=== PATIENT | female | born 1975 | race Caucasian/White ===

== ENCOUNTER 2018-10-30 01:56 | Inpatient (IN) | payer BC, SELFPAY ==
[2018-10-30] MEDS ORDERED: Naloxone HCl 0.4 mg/ml Vial ONE (02:06)
[2018-10-30] MEDS ORDERED: Rocuronium Bromide 10 MG/ML (10ML VIAL) ONE (02:16)
[2018-10-30] MEDS ORDERED: fentaNYL Citrate/PF 2,000 MCG in Sodium Chloride 0.9% 60 ML IV SCH ×2 (02:28→07:05)
[2018-10-30 02:38] LABS: #Eosinphils 0.1 thou/uL (0.0-0.7); #Lymphocytes 2.1 thou/uL (1.20-3.40); #Monocytes 0.4 thou/uL (0.11-0.59); #Neutrophils 3.6 thou/uL (1.40-6.50); %Basophils 0.6 % (0.0-1.0); %Eosinophils 1.5 % (0.0-10.0); %Lymphocytes 33.4 % (21.0-51.0); %Monocytes 5.8 % (0.0-10.0); %Neutrophils 58.8 % (42.0-75.0); Hemoglobin 13.1 g/dL (12.0-16.0); Mean Corpuscular HGB CONC 33.6 g/dL (32.0-36.0); Mean Corpuscular Hemoglobin 27.5 pg (27.0-31.0); Mean Corpuscular Volume 81.8 fL (78.0-98.0); Mean Platelet Volume 8.8 fL (7.4-10.4); Platelet Count 227 thou/uL (130-400); RBC Distribution Width 13.1 % (11.5-14.5); Red Blood Cell (RBC) Count 4.78 mill/uL (4.20-5.40); White Blood Cell (WBC) Count 6.2 thou/uL (4.8-10.8)
[2018-10-30 02:58] LABS: ALT (SGPT) 14 U/L (8-55); AST (SGOT) 10 U/L (5-34); Alkaline Phosphatase 82 U/L (40-150); Anion Gap 19 mmol/L (10-20); BUN (Urea Nitrogen) 19 mg/dL (7.0-18.7); Bilirubin, Total 0.4 mg/dL (0.2-1.2); CK (CPK) 49 U/L (29-168); Calc. Creatinine Clearance 0 mL/min (70-130); Calcium 10.1 mg/dL (7.8-10.44); Carbon Dioxide 23 mmol/L (22-29); Chloride 95 mmol/L (98-107); Estimated GFR-MDRD 42; Globulin 3.4 g/dL (2.4-3.5); Potassium 4.1 mmol/L (3.5-5.1); Protein, Total 7.4 g/dL (6.0-8.3); Sodium 133 mmol/L (136-145)
[2018-10-30 03:01] LABS: Glucose 660 mg/dL (70-105)
[2018-10-30] MEDS ORDERED: Propofol 1,000 MG/100 ML VIAL IV ONE (03:05)
[2018-10-30 03:07] LABS: Actual Bicarbonate (HCO3a) 23.3 mEq/L (22-28); Analyzer IN Cardio ER; Base Excess (BEa) 0.5 mEq/L (-2.0 to +3.0); CO2 Tension 32.1 mmHg (35.0-45.0); Calcium, Ionized 1.19 mmol/L (1.12-1.30); Carboxyhemoglobin (COHb) 0.5 gm% (0.0-3.0); Hemoglobin (Hb) 13.3 g/dL (12.0-16.0); O2 Tension (PaO2) 133.8 mmHg (80.0-100.0); Potassium - ABG Lab 4.41 mmol/L (3.70-5.30); pH, Arterial 7.48 (7.35-7.45)
[2018-10-30 03:10] LABS: ALV-art Gradient 182.575 (0-20); Puncture Site RRA
[2018-10-30 03:21] LABS: Acetaminophen Less than 6.0 mcg/mL (10.0-30.0); Alcohol Less than 10 mg/dL (Less than 10); Salicylate Less than 8.0 mg/dL (15.0-30.0)
[2018-10-30] MEDS ORDERED: Insulin Regular 100 units/100 ml in NS IVPB SCH (03:30)
[2018-10-30 04:13] LABS: Amphetamine Not Detected (NotDetected); Barbiturates Screen Not Detected (NotDetected); Benzodiazepine Screen Not Detected (NotDetected); Bilirubin Negative (Negative); Blood, Urine Moderate (Negative); Clarity CLEAR (Clear); Cocaine Metabolite Screen Not Detected (NotDetected); Glucose, Urine (Dipstick) >=1000 mg/dL (Negative); Leukocyte Negative (Negative); Medtox Control Line Valid? VALID (VALID); Medtox Reader # READER 1; Methadone Not Detected (NotDetected); Methamphetamine Not Detected (NotDetected); Nitrite Negative (Negative); Opiate Screen Not Detected (NotDetected); Oxycodone Screen Not Detected (NotDetected); Phencyclidine (PCP) Not Detected (NotDetected); Protein, Urine (Dipstick) 100 mg/dL (Neg-Trace); Specific Gravity, Urine 1.029 (1.002-1.036); THC/Cannabinoid Screen Not Detected (NotDetected); Tricyclic Screen Not Detected (NotDetected); Urobilinogen 0.2 mg/dL (0.2-1.0)
[2018-10-30 04:15] LABS: Bacteria/HPF None Seen HPF (None Seen); Hyaline Casts/LPF 0-3 HYALINE CAST LPF (0-3 Hyaline); Squamous Epithelial 0-3 HPF (0-3); WBC/HPF 0-3 HPF (0-3)
--- NOTE | 2018-10-30 04:43 | PDOC.FPRHP ---
- History of Present Illness Chief Complaint: Seizing History of Present Illness: Ms Tucker is a 43yo female with pmh of Insulin dependent DM with noncompliance presents by EMS from home for concern of seizure and stroke. History provided by . Monday at 2200 pt began acting strangely and was combative. She then laid down to go to sleep. Upon waking at 2300 she was slurring her speech, and reported she couldn't feel her feet. was concerned for stroke so had her lift her arms in the air. He is unable to remember which arm but at that time she was only able to lift one arm. He carried her to bed and began researching stroke symptoms. During this time she "snapped out of it" and walked to the living room couch and started speaking normally. Around 2330- midnight she began full body shaking while they were watching tv. He lowered her to the floor. It last approx 5 min. Afterwards she was able to open her eye but not speak or move. She has no hx of seizures. He noticed her breathing was different and very heavy. EMS arrived at this time. Only medical conditions reported by are muscular dystrophy and insulin dependent type 2 diabetes. Also reports chemical imbalance in her brain. She has not taken insulin in over 4 years or seen a physician during this time. Pt was unable to protect her airway in the ED. She was intubated and sedated. ED Course: Fentanyl 50mg x2. Intubated using rocuronium 100mg, etomidate 30mg. Sedated with Fentanyl and propofol. 1L NS and insulin ggt. Right IJ line placed. 2 peripheral IVs. Peguero placed. - Allergies/Adverse Reactions Allergies Allergy/AdvReac Type Severity Reaction Status Date / Time aspirin Allergy Verified 10/30/18 06:11 Penicillins Allergy Verified 10/30/18 06:11 - Home Medications Medication Instructions Recorded Confirmed Type Ibuprofen [Advil] 400 mg PO Q6HR PRN 10/30/18 10/30/18 History - History PMHx: Insulin dependent DMII, muscular dystrophy per , "chemical imbalance in brain" PSHx: x2 FHx: Parents: DMII, substance abuse, [place] Social: Former tobacco user, smoked 15 yrs. denies alcohol or drug use. - Review of Systems ROS unobtainable: other (per ) Gastrointestinal: denies: nausea, vomiting Musculoskeletal: reports: arthritis/arthralgias Neurological: reports: numbness (foot), seizure, weakness Psychological: reports: other ("chemical imbalance in brain") - Vital signs BP: 182/113 HR: 86 RR: 14 Tmax: 97.8 Pox: 100% on Vent - Physical Exam -Constitutional: Intubated and sedated HEENT: conjunctiva clear, MMM, other (Pinpoint pupils. Intubated Right IJ in place. 2 peripheral IV's. Peguero in place) Neck: trachea midline, no LAD, no thyromegaly Heart: RRR, no murmurs/rubs/gallops Lungs: CTAB, no wheezing Abdomen: soft, bowel sounds present Musculoskeletal: normal structure Skin: no rash/lesions, good turgor FMR H&P: Results - Labs Result Diagrams: 10/30/18 02:27 10/30/18 10:53 Lab results: WBC 6.2 thou/uL (4.8-10.8) 10/30/18 02:27 Hgb 13.1 g/dL (12.0-16.0) 10/30/18 02:27 Hct 39.1 % (36.0-47.0) 10/30/18 02:27 MCV 81.8 fL (78.0-98.0) 10/30/18 02:27 Plt Count 227 thou/uL (130-400) 10/30/18 02:27 Neutrophils % 58.8 % (42.0-75.0) 10/30/18 02:27 ABG pH 7.48 (7.35-7.45) H 10/30/18 02:55 ABG pCO2 32.1 mmHg (35.0-45.0) L 10/30/18 02:55 ABG pO2 133.8 mmHg (80.0-100.0) H 10/30/18 02:55 Sodium 133 mmol/L (136-145) L 10/30/18 02:27 Potassium 4.1 mmol/L (3.5-5.1) 10/30/18 02:27 Chloride 95 mmol/L (98-107) L 10/30/18 02:27 Carbon Dioxide 23 mmol/L (22-29) 10/30/18 02:27 BUN 19 mg/dL (7.0-18.7) H 10/30/18 02:27 Creatinine 1.35 mg/dL (0.6-1.1) H 10/30/18 02:27 Glucose 660 mg/dL (70-105) H* 10/30/18 02:27 Lactic Acid 4.0 mmol/L (0.5-2.2) H 10/30/18 02:27 Calcium 10.1 mg/dL (7.8-10.44) 10/30/18 02:27 Total Bilirubin 0.4 mg/dL (0.2-1.2) 10/30/18 02:27 AST 10 U/L (5-34) 10/30/18 02:27 ALT 14 U/L (8-55) 10/30/18 02:27 Alkaline Phosphatase 82 U/L (40-150) 10/30/18 02:27 Creatine Kinase 49 U/L (29-168) 10/30/18 02:27 Serum Total Protein 7.4 g/dL (6.0-8.3) 10/30/18 02:27 Albumin 4.0 g/dL (3.5-5.0) 10/30/18 02:27 Urine Ketones Negative mg/dL (Negative) 10/30/18 03:30 Urine Blood Moderate (Negative) H 10/30/18 03:30 Urine Nitrite Negative (Negative) 10/30/18 03:30 Ur Leukocyte Esterase Negative (Negative) 10/30/18 03:30 Urine RBC 7-10 HPF (0-3) H 10/30/18 03:30 Urine WBC 0-3 HPF (0-3) 10/30/18 03:30 Ur Squamous Epith Cells 0-3 HPF (0-3) 10/30/18 03:30 Urine Bacteria None Seen HPF (None Seen) 10/30/18 03:30 - Radiology Interpretation CT scan - head Status: report reviewed by me Additional comment: Awaiting official read. No acute abnormalities. No evidence of bleed FMR H&P: A/P - Problem List (1) Seizure Current Visit: Yes Status: Acute Code(s): R56.9 - UNSPECIFIED CONVULSIONS (2) Insulin dependent diabetes mellitus Current Visit: Yes Status: Acute Code(s): E11.9 - TYPE 2 DIABETES MELLITUS WITHOUT COMPLICATIONS; Z79.4 - JAIL (CURRENT) USE OF INSULIN (3) Lactic acid increased Current Visit: Yes Status: Acute Code(s): E87.2 - ACIDOSIS (4) Hyperglycemia Current Visit: Yes Status: Acute Code(s): R73.9 - HYPERGLYCEMIA, UNSPECIFIED (5) OMKAR (acute kidney injury) Current Visit: Yes Status: Acute Code(s): N17.9 - ACUTE KIDNEY FAILURE, UNSPECIFIED - Plan Ms Tucker is a 43yo female with pmh of Insulin dependent DM with noncompliance presenting with signs concerning for CVA vs Seizure Pulm - Currently on vent. SIMV RR: 12, TV 450, PEEP: 5 FIO2: 50% - Sedated on Propofol and Fentanyl - ABG in ED 7.48/32.1/133.8 - Consult Pulm - Admit to ICU Neuro - Unknown etiology for presentation. CVA vs Seizure. No hx of seizures. Prolactin elevated, 117. UDS negative. Pt did not receive TPA - Lactic acid 4 - CT/CTA in ED, no bleed or acute findings, awaiting final read - Sedated on Propofol and Fentanyl - Ordered Echo & MRI - EEG ordered - Neurology consult placed Endo - Hx of IDDMII. Noncompliance - Blood glucose 660. Anion gap 15 - Continue Insulin drip started in ED - BMP q4hr. Follow DKA protocol GI - Begin artificial nutrition in AM - Protonix daily CV - Hypertensive. No hx of HTN - Allow for permissive HTN for 24hrs, ends 1999 on 10/30 ID - No leukocytosis or fever. UA no signs of infection - Not on antibiotics - Peguero cath in place - OMKAR vs CKD. Cr 1.35 Lines: Right IJ. 2 peripheral IVs. Peguero cath Code Status: FULL DVT ppx: SCDs PCP: None FMR H&P: Upper Level - Pertinent history 43 yo female here from home for concerns for stroke. provides history. Monday evening around 22:00, patient began acting funny facing the wall in bed , slurring speech. Not sure how long this lasted, but <30 minutes. She snapped out of it and got up to go to the bathroom. Around 23:30, patient was watching wrestling with when she began having full body shaking and nonresponsive. This lasted about 5 minutes. After that she had abnormal breathing where she was breathing through pursed lips. called EMS. Patient never fully regained consciousness. Patient was fighting her and speaking nonsensical. In the ER, patient was not protecting her airway and was aggressive towards staff, preventing care to be administered, so she was intubated. Pt has a history of IDDM, but has not taken any medications for the past 4 years because she has not had insurance. Degenerative muscle disease also reported by . - Pertinent findings 182/113 HR: 86 TEMP: 97.8 SAT: 100% on vent Rate: 12 FIO2: 50% PEEP: 5 GEN: GCS 3 NEURO: pupils fixed, sedated, no clonus of LE PULM: intubated, no decreased breath sounds CARD: RRR, no mgr Lactate: 4.[address] Ramirez note for complete plan - Plan Date/Time: 10/30/18 0442 I, Neel Landers DO, have evaluated this patient and agree with findings/plan as outlined by internal recruiter resident. Pertinent changes/additions are listed here. # acute respiratory distress 2/2 Seizure vs CVA -intubated currently as she is not protecting her airway -MRI head -CVA head/neck -ECHO -EEG -neuro consult #Insulin dependent diabetes mellitus -patient started on hyperglycemia protocol -insulin drip #elevated lactate #OMKAR vs CKD Addendum - Attending - Attending Attestation Date/Time: 10/30/18 2200 I personally evaluated the patient and discussed the management with Dr. Ramirez and team. I agree and repeated with the History, Examination, Assessment and Plan documented above with any addition or exceptions noted below. 45 minutes of critical care time.
[2018-10-30] MEDS ORDERED: Midazolam HCl 2 mg/2 ml Vial ONE (04:44)
--- NOTE | 2018-10-30 05:13 | PDOC.EVN ---
Event Note - Event Note Event Note: Seen in ED. Reviewed history and ED course. On my exam intubated, sedated, and not w/d to stimuli. Pupils pinpoint. RRR s M; CTAB s w/r/r; ETT/OG and RIJ in place. BS+ , NTTP, no palp organomegaly. No rash or contusion. No fracture or malalignment. CT and CXR relatively unremarkable on my read. RIJ CVC in RA. DDx includes seizure disorder, stroke, ingestion, mass, other. If stroke, outside of window and no large vessel. Propofol gtt for sedation; EEG; neuro consult in AM. Begin TF in AM. Monitor BP and would allow permissive hypertension. Lung protective ventilation. Begin insulin gtt for hyperglycemia without acidosis or significant gap. MRI brain when able. DVT ppx. GI ppx if unable to start feeds.
[2018-10-30] MEDS ORDERED: Sodium Chloride 0.9% 1,000 ML IV SCH (05:15)
[2018-10-30] MEDS ORDERED: Sodium Chloride 0.9% 1,000 ML IV PRN ×4 (06:53)
[2018-10-30] MEDS ORDERED: CCU Electrolyte Replacement 1 EACH IVPB ONE (06:53)
[2018-10-30] MEDS ORDERED: HUMULIN R 100 UNITS in Sodium Chloride 0.9% 100 ML IVPB SCH (06:53)
[2018-10-30] MEDS ORDERED: NS 0.9% w/ 20 MEQ KCL 1,000 ML IV PRN ×2 (06:53)
[2018-10-30] MEDS ORDERED: Ventilator Sedation Protocol 1 EACH FS ONE (06:53)
[2018-10-30] MEDS ORDERED: Lactated Ringer's 1,000 ML IV SCH (06:53)
[2018-10-30] MEDS ORDERED: Dextrose 5 %-0.45 % NaCl 1,000 ML IV PRN (06:53)
[2018-10-30] MEDS ORDERED: Lorazepam 2 MG/ML VIAL SLOW IVP PRN (06:53)
[2018-10-30] MEDS ORDERED: Ventilator Sedation Protocol 1 EACH FS SCH (06:53)
[2018-10-30] MEDS ORDERED: hydrALAZINE 20 MG/ML VIAL SLOW IVP PRN (06:53)
[2018-10-30] MEDS ORDERED: Potassium Phosphate 9 MMOL in Sodium Chloride 0.9% 100 ML IVPB PRN (07:04)
[2018-10-30] MEDS ORDERED: Magnesium 2 GM/50 ML 2 GM in Premix Bag 1 BAG IVPB PRN (07:04)
[2018-10-30] MEDS ORDERED: Potassium Chloride 40 MEQ in Premix Bag 1 BAG IVPB PRN (07:04)
[2018-10-30] MEDS ORDERED: Magnesium Oxide 400 MG TAB PO PRN ×2 (07:04)
[2018-10-30] MEDS ORDERED: Potassium Chloride 20 MEQ TAB PO PRN (07:04)
[2018-10-30] MEDS ORDERED: Potassium Phosphate 12 MMOL in Sodium Chloride 0.9% 250 ML 250 ML IV PRN (07:04)
[2018-10-30] MEDS ORDERED: Potassium Chloride 40 MEQ in Sodium Chloride 0.9% 250 ML 250 ML IVPB PRN (07:04)
[2018-10-30] MEDS ORDERED: Potassium Phosphate 15 MMOL in Sodium Chloride 0.9% 250 ML 250 ML IV PRN (07:04)
[2018-10-30] MEDS ORDERED: CCU ELECTROLYTE REPLACEMENT PROTOCOL FS PRN (07:04)
[2018-10-30] MEDS ORDERED: Propofol BOLUS 1,000 MG/100 ML VIAL IV PRN (07:05)
[2018-10-30] MEDS ORDERED: DISCONTINUE PREVIOUS NARCOTIC PAIN MEDICATIONS AND BENZODIAZEPINES FS SCH (07:05)
[2018-10-30] MEDS ORDERED: Fentanyl BOLUS 250 ML IVPB PRN (07:05)
[2018-10-30] MEDS ORDERED: Morphine 2 MG/ML SYRINGE SLOW IVP PRN (07:05)
[2018-10-30] MEDS ORDERED: Sodium Chloride 0.9% (PF) 10 ML VIAL FS PRN (07:09)
[2018-10-30 07:36] LABS: BHCG - Serum Negative (NEGATIVE); Pregs Control Background? CLEAR/WHITE (CLR/WHITE); Pregs Control Bar Appear? YES (CONTROL BAR)
[2018-10-30 07:42] LABS: Actual Bicarbonate (HCO3a) 26.3 mEq/L (22-28); Analyzer IN Cardio ER; Base Excess (BEa) 0.9 mEq/L (-2.0 to +3.0); CO2 Tension 44.9 mmHg (35.0-45.0); Carboxyhemoglobin (COHb) 0.3 gm% (0.0-3.0); Hemoglobin (Hb) 12.6 g/dL (12.0-16.0); O2 Tension (PaO2) 286.9 mmHg (80.0-100.0); Potassium - ABG Lab 3.88 mmol/L (3.70-5.30); pH, Arterial 7.39 (7.35-7.45)
[2018-10-30 07:43] LABS: Magnesium 1.7 mg/dL (1.6-2.6); Phosphorus 3.4 mg/dL (2.3-4.7)
[2018-10-30 07:46] LABS: ALV-art Gradient 120.425 (0-20); Puncture Site RR
[2018-10-30 07:47] LABS: Lactic Acid 3.1 mmol/L (0.5-2.2)
[2018-10-30 07:51] LABS: Anion Gap 13 mmol/L (10-20); BUN (Urea Nitrogen) 18 mg/dL (7.0-18.7); Calc. Creatinine Clearance 82 mL/min (70-130); Calcium 9.7 mg/dL (7.8-10.44); Carbon Dioxide 26 mmol/L (22-29); Chloride 102 mmol/L (98-107); Estimated GFR-MDRD 64; Glucose 327 mg/dL (70-105); Potassium 3.8 mmol/L (3.5-5.1); Sodium 137 mmol/L (136-145)
[2018-10-30] MEDS ORDERED: ISOVUE-370 76%-LOCM 1 ML ONE (07:55)
[2018-10-30] MEDS: D5 1/2 NS w/20 mEq KCL 1,000 ML IV PRN ×2 (08:03→12:23)
[2018-10-30] MEDS ORDERED: Gadobenate Dimeglumine 529 MG/1 ML (20ML VIAL) ONE (08:03)
--- NOTE | 2018-10-30 08:03 | RAD ---
AP VIEW CHEST: HISTORY: Chest pain, intubation. FINDINGS: AP view chest was obtained. Nasogastric and endotracheal tubes were in good position. The lungs are well aerated. No evidence of active intrathoracic disease seen. No evidence of effusions, pneumoni a, or pneumothorax seen. IMPRESSION: Unremarkable AP view chest. POS: [facility]
--- NOTE | 2018-10-30 08:04 | RAD ---
AP VIEW CHEST: 10/30/2018 HISTORY: Central line placement. COMPARISON: Exam from earlier in the day on 10/30/2018. FINDINGS: AP view chest demonstrates nasogastric and endotracheal tubes to be in good position. There has been placement of a right jugular central line, distal tip overlying the right atrium. No evidence of po st line placement hemothorax or pneumothorax seen. The lungs are well aerated. IMPRESSION: Lines and tubes in good position. No evidence of post line placement hemothorax or pneumothorax seen . POS: [facility]
--- NOTE | 2018-10-30 08:33 | CT ---
PRELIMINARY REPORT/[facility]/EMERGENTY AFTER-HOURS PROCEDURE CT Angiography Head Without And With Contrast EXAM DATE/TIME: 10/30/2018 2:45 AM CLINICAL HISTORY: 43 years old, female; Unresponsive; PT was lsn 2100. Pts stated she began acting strange and then had seizure. PT inow unresponsive. TECHNIQUE: Axial computed tomographic angiography images of the head without and with intravenous contrast using CT angiography protocol. MIP reconstructed images were created and reviewed. COMPARISON: CT Brain WO Con 10/30/2018 2:36 AM FINDINGS: Right internal carotid artery: Unremarkable. Intracranial segment is patent with no significant steno sis. No aneurysm. Right anterior cerebral artery: Unremarkable. No occlusion or significant stenosis. No aneurysm. Right middle cerebral artery: Unremarkable. No occlusion or significant stenosis. No aneurysm. Right posterior cerebral artery: Unremarkable. No occlusion or significant stenosis. No aneurysm. Right vertebral artery: Unremarkable. No occlusion or significant stenosis. No aneurysm. Left internal carotid artery: Unremarkable. Intracranial segment is patent with no significant stenosis. No aneurysm. Left anterior cerebral artery: Unremarkable. No occlusion or significant stenosis. No aneurysm. Left middle cerebral artery: Unremarkable. No occlusion or significant stenosis. No aneurysm. Left posterior cerebral artery: Unremarkable. No occlusion or significant stenosis. No aneurysm. Left vertebral artery: Patent left vertebral artery. Dominant left vertebral artery. Basilar artery: Unremarkable. No occlusion or significant stenosis. No aneurysm. HEAD: Brain: Unremarkable. No hemorrhage. No significant white matter disease. No edema. Ventricles: Normal. No ventriculomegaly. Bones/joints: Unremarkable. No acute fracture. Sinuses: Visualized sinuses are normal. No fluid levels. Mastoid air cells: Visualized mastoids are normal. No mastoid effusion. Soft tissues: Unremarkable. IMPRESSION: CTA head within normal limits. CT Angiography Neck With Contrast EXAM DATE/TIME: 10/30/2018 2:45 AM CLINICAL HISTORY: 43 years old, female; Unresponsive; PT was lsn 2100. Pts stated she began acting strange and then had seizure. PT inow unresponsive. TECHNIQUE: Axial computed tomographic angiography images of the neck with intravenous contrast using CT angiogra phy protocol. MIP reconstructed images were created and reviewed. COMPARISON: CT Brain WO Con 10/30/2018 2:36 AM FINDINGS: Tubes, catheters and devices: Tip of endotracheal tube located approximately 3.5 cm above the kirill. VASCULATURE: Right common carotid artery: Normal. No significant stenosis. No dissection or occlusion. Right internal carotid artery: Normal. Extracranial segment is patent with no significant stenosis. No dissection or occlusion. Right external carotid artery: Normal. No occlusion or significant stenosis. Right vertebral artery: Normal. No significant stenosis. No dissection or occlusion. Left common carotid artery: Normal. No significant stenosis. No dissection or occlusion. Left internal carotid artery: Normal. Extracranial segment is patent with no significant stenosis. No dissection or occlusion. Left external carotid artery: Normal. No occlusion or significant stenosis. Left vertebral artery: Patent left vertebral artery. Dominant left vertebral artery. NECK: Bones/joints: No acute fracture. Soft tissues: Normal. No significant soft tissue swelling. Lungs: Areas of infiltrate in the visualized right lung. IMPRESSION: 1. CT neck within normal limits. 2. Areas of infiltrate in the visualized right lung. COMMENT: Reference per NASCET criteria for degree of stenosis: Mild: less than 50% stenosis. Moderate: 50-69% stenosis. Severe: 70-94% stenosis. Near occlusion: 95-99% stenosis. Thank you for allowing us to participate in the care of your patient. Dictated and Authenticated by: Chad Evans MD 10/30/2018 4:12 AM Central Time ([place] & [place]) FINAL REPORT CT ANGIOGRAM OF THE HEAD CT ANGIOGRAM OF THE NECK: HISTORY: Unresponsive patient. COMPARISON: None. TECHNIQUE: CT angiogram of the head and neck are performed in the axial plane. Two-dimensional reformatted imag es are submitted for interpretation. FINDINGS: This report is in agreement with the preliminary report by [facility]. There is no evidence of vascular occ lusion or significant stenosis involving the [place] of [place]. There is no significant stenosis base d upon NASCET criteria involving the cervical carotid arteries. There is opacification of the right lung which may represent aspiration or pneumonia. POS: [facility]
--- NOTE | 2018-10-30 08:37 | CT ---
PRELIMINARY REPORT/[facility]/EMERGENTY AFTER-HOURS PROCEDURE CT Head Without Contrast EXAM DATE/TIME: 10/30/2018 2:36 AM CLINICAL HISTORY: 43 years old, female; Coma or unconsciousness; PT was lsn 2100. Pts stated she began acting s trange and then had a seizure. PT now unresponsive. TECHNIQUE: Axial computed tomography images of the head/brain without contrast. COMPARISON: No relevant prior studies available. FINDINGS: Brain: No acute intracranial hemorrhage. Diffuse cerebral atrophy - changes are accelerated for the p atient's stated age of 43 years. No mass effect or midline shift. No extra-axial fluid collection. Ventricles: Ventricular prominence in this patient with diffuse cerebral atrophy. Bones/joints: Unremarkable. No acute fracture. Sinuses: No significant disease of the paranasal sinuses. Mastoid air cells: No mastoiditis. Soft tissues: Unremarkable. IMPRESSION: 1. No acute intracranial findings. 2. No acute intracranial hemorrhage. 3. Diffuse cerebral atrophy - changes are accelerated for the patient's stated age of 43 years. Thank you for allowing us to participate in the care of your patient. Dictated and Authenticated by: Chad Evans MD 10/30/2018 3:58 AM Central Time ([place] & [place]) FINAL REPORT HEAD CT WITHOUT CONTRAST: HISTORY: Altered mental status. Seizure. Unresponsive patient. FINDINGS: This report is in agreement with the preliminary report by [facility]. No acute intracranial process. Brain volume, less than expected for patient's age. POS: [facility]
[2018-10-30 08:39] LABS: Hemoglobin A1c 15.6 % (4.0-6.0)
[2018-10-30] MEDS: Pantoprazole 40 MG VIAL IVP SCH (10:17)
[2018-10-30] MEDS ORDERED: levETIRAcetam 500 MG in Sodium Chloride 0.9% 100 ML IVPB SCH (10:46)
[2018-10-30 11:49] LABS: Anion Gap 9 mmol/L (10-20); BUN (Urea Nitrogen) 16 mg/dL (7.0-18.7); Calc. Creatinine Clearance 99 mL/min (70-130); Calcium 9.3 mg/dL (7.8-10.44); Carbon Dioxide 29 mmol/L (22-29); Chloride 104 mmol/L (98-107); Estimated GFR-MDRD 79; Glucose 176 mg/dL (70-105); Potassium 3.7 mmol/L (3.5-5.1); Sodium 138 mmol/L (136-145)
[2018-10-30] MEDS ORDERED: Dextrose 5% in Water 1,000 ML IV PRN (13:09)
[2018-10-30] MEDS ORDERED: Dextrose 50% Abboject 50 ML SYRINGE SLOW IVP PRN (13:09)
[2018-10-30] MEDS: cefTRIAXone\\ROCEPHIN 2 GM in Sodium Chloride 0.9% 100 ML IVPB SCH (13:52)
--- NOTE | 2018-10-30 13:55 | CON ---
DATE OF CONSULTATION: 10/30/2018 SERVICE: Pulmonary Medicine. REASON FOR CONSULTATION: ICU patient. HISTORY OF PRESENT ILLNESS: The patient is a 43-year-old white female with past medical history significant for nothing more than type 2 diabetes mellitus. She is noncompliant with any of her medications. She was in her usual state of health until yesterday. There was confusional state that came and went, but ultimately, she was found completely disoriented and poorly responsive at roughly 10:00 p.m. She was brought to the emergency department. A tonic-clonic type activity was identified. Overnight, she was placed on mechanical ventilation and put on propofol. This morning, sedation was held and we did an EEG. She did not have any ongoing seizure activity. She cannot provide any additional elements of the history. There are no reports of her being sick prior to this event. PAST MEDICAL HISTORY: 1. Type 2 diabetes mellitus. 2. Possible muscular dystrophy, though this diagnosis is questionable based on what the is suggesting. PAST SURGICAL HISTORY: section x2. FAMILY HISTORY: Noncontributory. SOCIAL HISTORY: Negative for current tobacco, alcohol, or illicit drug use. She quit smoking remotely. She has about a 15-pack year history of smoking. ALLERGIES: ASPIRIN AND PENICILLIN. MEDICATIONS: List of her inpatient medications was reviewed. Multiple updates were made. REVIEW OF SYSTEMS: This cannot be obtained as the patient is currently intubated under the influence of sedation. PHYSICAL EXAMINATION: VITAL SIGNS: Previously afebrile, but now is running a temperature of 100.9, pulse 102, blood pressure 170/96, respirations 16, saturation 98% on 27% FiO2 and a PEEP of 5. GENERAL: The patient is intubated and sedated. HEENT: Normocephalic and atraumatic. Sclerae white. Conjunctivae pink. Oral mucosa is moist without lesions. LUNGS: Decent air entry. No crackles are present. No wheezing or rhonchi appreciated. HEART: Normal rate and regular. ABDOMEN: Soft, nontender, and nondistended. Bowel sounds are positive. MUSCULOSKELETAL: No cyanosis or clubbing. No pitting in the bilateral lower extremities. NEUROLOGIC: She has a right lower extremity Babinski, which is positive. That being said, she does withdraw from the bilateral lower extremity, and left upper extremity. She does not withdraw from noxious stimuli in the right upper extremity, though she moves the left arm with stimulation of the right upper extremity. Her pupils are equal, round, and reactive. Doll's eyes are normal, and she is overbreathing the ventilator comfortably and demonstrates a good gag and cough. LABORATORY DATA: WBC 6.2, hemoglobin 13.1, platelets 227,000. A pH 7.39, pCO2 of 45, pO2 of 286 on 60% FiO2 at that time. Basic metabolic profile is unremarkable. Lactate has resolved to 1.9. Hemoglobin A1c 15.6, anion gap 9. Calcium 9.7. Serum is unremarkable. Liver function studies were previously negative. Magnesium and phosphorus fell within normal limits. Prolactin level was quite elevated at 117. Urinalysis is only significant for glycosuria, and a small amount of blood. Urine drug screen is completely unremarkable. Beta-hydroxybutyrate acid is negative, alcohol, salicylates, and acetaminophen are all unremarkable. ASSESSMENT: 1. Severe sepsis, possible. 2. Seizure. 3. Metabolic encephalopathy. DISCUSSION AND PLAN: Because of the new onset fever, we will go ahead and do a pressley culture. I will empirically start her on BODY FINISHER antibiotics including Rocephin and vancomycin. Antiepileptic drugs will be initiated. We will hold sedation until the patient wakes up a little bit more appropriately. If she does, extubation will be considered following a spontaneous breathing trial, which she should do just fine with. MRI scheduled for later today in the event that she does not wake up well. LP will certainly be considered if her mentation does not improve. Multiple adjustments have been made to mechanical ventilator in order to target our goals of respiration. CRITICAL CARE TIME: 30 minutes. Job ID: [id number]
--- NOTE | 2018-10-30 14:32 | EEG ---
Referring Physician: BRIGIDA TURCIOS EEG # [id number] TEST TYPE: [ROUTINE PORTABLE INPATIENT REPORT: AN EEG USING THE INTERNATIONAL TEN-TWENTY SYSTEM OF ELECTRODE PLACEMENT WAS PERFORMED. The background activity appears to be diffuse slowing and suppression over both hemispheres. No wakeful background activity was seen throughout the study. Photic stimulation was unremarkable. No epileptiform features were seen. IMPRESSION: THIS IS AN ABNORMAL STUDY FOR THE FINDINGS OF DIFFUSE SLOWING AND SUPPRESSION CONSISTENT WITH A DIFFUSE ENCEPHALOPATHIC PROCESS. Money Manager: KEESHA Layer Up: EEG.COSTA LARIOS
--- NOTE | 2018-10-30 16:31 | MRI ---
BRAIN MRI WITH AND WITHOUT CONTRAST: COMPARISON: Head CT same date. INDICATION: Altered mental status, new onset seizure. FINDINGS: There is mild enlargement of the ventricular system without midline shift. No acute territorial infa rction. There is patient motion degrading image quality. No parenchymal hemorrhage or pathologic in traaxial enhancement is identified. Skull base flow voids are maintained. There is paranasal sinus mucosal thickening. There is also mild left mastoid fluid. IMPRESSION: 1. Mild enlargement of the ventricular system. 2. No acute territorial infarction or intracranial mass effect. POS: [facility]
[2018-10-30] MEDS ORDERED: Vancomycin HCl 1.75 GM in Sodium Chloride 0.9% 500 ML IVPB SCH (17:00)
[2018-10-30] MEDS: Acetaminophen 650 MG/20.3 ML UDCUP PER TUBE PRN (17:19)
[2018-10-30] MEDS: Propofol 1,000 MG/100 ML VIAL IV PRN (17:19)
--- NOTE | 2018-10-30 19:01 | RAD ---
FLUOROSCOPIC GUIDED LUMBAR PUNCTURE: 10/30/18 INDICATION: Concern for meningitis with altered mental status. TECHNIQUE: Preprocedure senior attorney images were obtained. Informed consent was obtained prior to the patient leaving [facility]. Following confirmation of consent, the patient was placed prone on the fluoroscopic table. Si te overlying the right L3-4 interlaminar space was marked. Site was prepped and draped in the usual s terile fashion. Under fluoroscopic guidance, a 20 gauge spinal needle was guided down into the right L3-4 interlaminar space into the thecal sac. There was spontaneous normal appearing CSF fluid. Follow ing this, CSF fluid was obtained in four separate aliquots. Total fluoroscopic time was 0.4 minutes. Total exposure was 84.2 uGy*m2. The inner stylet was placed in the needle prior to it being removed. Pressure was held at the sample site until hemostasis was obtained. The site was then cleaned and ban daged. The patient tolerated the procedure without difficulty. RT was on site for monitor the patient due to patient being intubated. IMPRESSION: Successful fluoroscopic guided lumbar puncture with removal of 10 mL of normal appearing CSF. POS: [facility]
[2018-10-30 19:11] LABS: CSF Source CSF; Clarity Clear (Clear); RBC Count - Manual 0 /cumm (None Seen); Tube # 4; WBC/NonHematics Count - Manual 0 /cumm (0-5)
[2018-10-30 19:15] LABS: Color Of CSF Supernatant COLORLESS (Colorless); Tube # 2; Unspun CSF Color COLORLESS (Colorless)
[2018-10-30 19:27] LABS: CSF, Glucose 142 mg/dl (40-70); CSF, Protein 88 mg/dL (15-40)
[2018-10-30] MEDS: Lactated Ringer's 1,000 ML IV SCH (19:39)
[2018-10-30 20:03] LABS: Syphilis Antibody Nonreactive (Nonreactive); Syphilis Antibody Index 0.03 S/CO (<1.00 Non-Reactive)
[2018-10-30] MEDS ORDERED: Vancomycin HCl 1 GM in Premix Bag 1 BAG IVPB SCH (21:00)
--- NOTE | 2018-10-30 21:58 | CON ---
DATE OF CONSULTATION: 10/30/2018 CONSULTING PHYSICIAN: Hospitalist Services. IMPRESSION: Possible encephalitis with secondary comatose state and left-sided weakness. PLAN: 1. Lumbar puncture for further evaluation of possible infection. 2. Start acyclovir. 3. Consult Dr. Gómez for an opinion. HISTORY OF PRESENT ILLNESS: Ms. Tucker is a 43-year-old diabetic. She was witnessed by her to have what appeared to be a brief seizure. Afterward, he noticed that she was not moving her left side in appropriate fashion. She was subsequently intubated and brought into the ICU. Initial CT scans of the brain were unremarkable. Her lab work was only notable for a markedly elevated blood glucose of over 600. She has gotten her blood sugar brought under better control. She had an EEG done earlier today, which showed a relatively suppressed and slowed background without any epileptiform features. She had an MRI of the brain done this afternoon which was reviewed and fails to show any intraparenchymal abnormalities. There is no evidence of enhancement as far as I can see, had not been read by Radiology at this point, she has spiked a temperature of 102. Otherwise, her tox screen was negative. She has not had any further seizure-like activity. PAST MEDICAL HISTORY: Diabetes. ALLERGIES: ASPIRIN, PENICILLIN. SOCIAL HISTORY: Unknown other than she is . FAMILY HISTORY: Not obtainable. REVIEW OF SYSTEMS: Not obtainable. MEDICATIONS: Medication list was reviewed. PHYSICAL EXAMINATION: GENERAL: She is a well-nourished, middle-aged woman, on ventilatory support. VITAL SIGNS: Blood pressure 158/79, pulse 100, respirations 20, saturations 97%. HEENT: Pupils are equal. Eyes are conjugate. Conjunctivae are clear. She is orally intubated. NECK: Supple, no lymphadenopathy. EXTREMITIES: No rash or edema. NEUROLOGIC: She is deeply lethargic. She can make a few subtle movements when maximally stimulated. She seems to move the right side more than the left. Doll's head maneuver produced conjugate movements in all directions. She had a very weak pain response. Tone on the left was better than that on the right. Plantar responses are upgoing bilaterally. No other abnormal movements are seen. SUMMARY: This is a middle-aged woman who presented with what appeared to be a seizure-like episode, now has some lateralized findings, comatose state with severely suppressed background on her EEG and now she is spiking a fever. I would go ahead and start her on acyclovir and see if Infectious Disease would recommend otherwise. Job ID: [id number]
--- NOTE | 2018-10-30 23:15 | CON ---
DATE OF CONSULTATION: 10/30/2018 REASON FOR CONSULTATION: Possible seizure activity, altered mental status. HISTORY OF PRESENT ILLNESS: A 43-year-old, 1st admission to this hospital, who has a history of type 2 diabetes and some form of muscular dystrophy. It is not clear how this diagnosis has been documented, but history is reported by . On the day of admission, she developed altered mental status, became combative, went to sleep and woke up, and had a bit of slurred speech. There was some concern with her being weak in one side versus the other. In the next few minutes, she recovered and start walking and speaking normally, subsequently developed what he described as body shakes. After that, the episode of what appears to be a tonic clonic activity. She recovered consciousness, but at least partially. She was tachypneic and EMS was activated. It is not clear what her blood sugar was once the EMS arrived at the scene, brought to the emergency room. At the emergency room, she could not protect her airway and was intubated. Lines placed in the right IJ location. A Peguero catheter was inserted. She has been scheduled for fluoroscopy guided spinal tap. PAST MEDICAL HISTORY: Type 2 diabetes and some form of muscular dystrophy. PAST SURGICAL HISTORY: x2. FAMILY HISTORY: Type 2 diabetes, substance abuse, and myocardial infarction. SOCIAL HISTORY: Former smoker. No drug use. MEDICATIONS AT HOME: Include, 1. Ibuprofen. 2. Insulin. CURRENT MEDICATIONS: 1. Rocephin. 2. Albuterol. 3. Dextrose. 4. Fentanyl p.r.n. 5. Lorazepam p.r.n. 6. Magnesium. 7. Morphine. 8. Vancomycin. PHYSICAL EXAMINATION: VITAL SIGNS: T-max 102.3, blood pressure 150/70, pulse 100 to 114, respiratory rate 18. SKIN: Shows the IJ central line and Peguero catheter in place. No areas of skin breakdown. No lymphadenopathy. HEENT: Ocular movements conjugate. Sclerae white. Pupils are miotic. Orotracheal intubation. LUNGS: Symmetric breath sounds, which are clear. HEART: S1 and S2, regular rate without murmurs. No S3 or S4. ABDOMEN: Soft, not distended or tender. No ascites. No bladder distention. MUSCULOSKELETAL: No joint inflammatory activity. I could not get any plantar reflexes. She has no evidence of clonus. NECK: Supple. EXTREMITIES: When her body is stimulated, she tries to move her upper extremities. She is restrained at this time. LABORATORY DATA: White cell count 6.2, hemoglobin 13, platelets 227 with a normal differential. pH 7.48, pCO2 of 32, pO2 of 133. Sodium 138, creatinine 0.79. Hemoglobin A1c 15.6. Lactic acid 1.9 and liver profile normal. Albumin 4.0. Prolactin was 117. Urinalysis with 7 to 10 rbc's, 0 to 3 wbc's, protein 100, glucose greater than 1000. Toxicology was negative and chest x-ray with no lung infiltrates identified. CT [place] angio with contrast was essentially normal and brain CT was normal as well. ASSESSMENT: New onset of presumable seizure activity, tonic clonic in nature with postictal phenomenon. Elevation in prolactin, supports the hypothesis of tonic clonic seizure activity. The reason for this activity could be idiopathic or intraparenchymal or meningeal inflammatory process. This appears less likely in view of her normal CBC and differential. Bacterial meningitis would be less likely, but not ruled out. Herpes simplex encephalitis needs to be considered and ruled out and we will wait for the CSF evaluation. Status epilepticus will have to be ruled out with EEG. In the meantime, continue current broad-spectrum coverage at acyclovir to the panel of medications, autoimmune causes of encephalitis will have to be considered depending on clinical progress and the results of the CSF. May need MRI. Job ID: [id number] [facility]
[2018-10-31] MEDS: Acetaminophen 650 MG/20.3 ML UDCUP PER TUBE PRN ×4 (00:01→15:55)
[2018-10-31] MEDS: Insulin Regular 300 UNITS/3 ML VIAL SC PRN ×3 (00:12→12:30)
[2018-10-31 00:48] LABS: HIV (1/2) Antibody/Antigen Non-Reactive (NonReactive); HIV 1/2 INDEX 0.08 S/CO (<1.00)
[2018-10-31] MEDS: cefTRIAXone\\ROCEPHIN 2 GM in Sodium Chloride 0.9% 100 ML IVPB SCH (01:24)
[2018-10-31 04:05] LABS: #Lymphocytes 1.3 thou/uL (1.20-3.40); #Monocytes 0.8 thou/uL (0.11-0.59); %Basophils 0.2 % (0.0-1.0); %Eosinophils 0.1 % (0.0-10.0); %Lymphocytes 10.6 % (21.0-51.0); %Monocytes 6.7 % (0.0-10.0); %Neutrophils 82.4 % (42.0-75.0); Hemoglobin 11.4 g/dL (12.0-16.0); Mean Corpuscular HGB CONC 33.6 g/dL (32.0-36.0); Mean Corpuscular Hemoglobin 27.8 pg (27.0-31.0); Mean Corpuscular Volume 82.9 fL (78.0-98.0); Mean Platelet Volume 8.4 fL (7.4-10.4); Platelet Count 219 thou/uL (130-400); RBC Distribution Width 13.3 % (11.5-14.5); Red Blood Cell (RBC) Count 4.09 mill/uL (4.20-5.40); White Blood Cell (WBC) Count 12.2 thou/uL (4.8-10.8)
[2018-10-31 04:24] LABS: Phosphorus 3.1 mg/dL (2.3-4.7)
[2018-10-31 04:30] LABS: Anion Gap 15 mmol/L (10-20); BUN (Urea Nitrogen) 16 mg/dL (7.0-18.7); Calc. Creatinine Clearance 68 mL/min (70-130); Calcium 8.5 mg/dL (7.8-10.44); Carbon Dioxide 21 mmol/L (22-29); Cardiac Risk 6.7 (Less than 4.5); Chloride 103 mmol/L (98-107); Cholesterol 175 mg/dl (< 200 Desired); Estimated GFR-MDRD 51; Glucose 396 mg/dL (70-105); HDL Cholesterol 26 mg/dL (>60 Neg Risk); LDL Cholesterol, Calculated 69 mg/dL; Magnesium 1.3 mg/dL (1.6-2.6); Potassium 4.1 mmol/L (3.5-5.1); Sodium 135 mmol/L (136-145); Triglycerides 400 mg/dL (Less than 150)
[2018-10-31] MEDS ORDERED: Vancomycin HCl 1 GM in Premix Bag 1 BAG IVPB SCH (05:00)
[2018-10-31] MEDS: Lactated Ringer's 1,000 ML IV SCH ×3 (05:08→18:46)
--- NOTE | 2018-10-31 07:14 | PDOC.FM ---
- Subjective Subjective: Patient has been off sedation since 0700 on 10/30. Pt remains minimally responsive, with withdrawal to pain, GCS 6. No further seizure like activity - Objective MAR Reviewed: Yes Vital Signs & Weight: Vital Signs (12 hours) Temp Pulse Resp BP Pulse Ox 10/31/18 06:00 18 10/31/18 04:00 102.5 F H 18 10/31/18 02:45 105 H 120/73 10/31/18 02:00 15 10/31/18 00:14 114 H 143/74 H 10/31/18 00:00 103.2 F H 17 10/30/18 22:15 114 H 130/73 10/30/18 22:00 17 10/30/18 20:00 102.7 F H 22 H 97 Weight Admit Weight 69.5 kg Weight 71.4 kg Most Recent Monitor Data Heart Rate from ECG 105 NIBP 147/80 NIBP BP-Mean 102 Respiration from ECG 22 SpO2 98 I&O: 10/30/18 10/31/18 11/01/18 06:59 06:59 06:59 Intake Total 153.4 2268.3 Output Total 1625 2480 Balance -1471.6 -211.7 Result Diagrams: 10/31/18 03:55 10/31/18 03:55 Phys Exam - Physical Examination Constitutional: NAD (resting comfortably on ventilator) HEENT: PERRLA, moist MMs, sclera anicteric Neck: no nodes Respiratory: no wheezing, no rales, no rhonchi, clear to auscultation bilateral Cardiovascular: no significant murmur, no rub tachycardic, regular rhythm Gastrointestinal: soft, non-tender, no distention, positive bowel sounds Musculoskeletal: no edema, pulses present GCS 6, withdraws from pain in all 4 extremities Skin: normal turgor, cap refill <2 seconds Dx/Plan (1) Acute respiratory failure Code(s): J96.00 - ACUTE RESPIRATORY FAILURE, UNSP W HYPOXIA OR HYPERCAPNIA Status: Acute Qualifiers: Respiratory failure complication: hypoxia Qualified Code(s): J96.01 - Acute respiratory failure with hypoxia (2) Sepsis Code(s): A41.9 - SEPSIS, UNSPECIFIED ORGANISM Status: Acute Qualifiers: Sepsis type: sepsis due to unspecified organism Qualified Code(s): A41.9 - Sepsis, unspecified organism (3) Seizure Code(s): R56.9 - UNSPECIFIED CONVULSIONS Status: Acute (4) OMKAR (acute kidney injury) Code(s): N17.9 - ACUTE KIDNEY FAILURE, UNSPECIFIED Status: Acute (5) Diabetes mellitus type 2, insulin dependent Code(s): E11.9 - TYPE 2 DIABETES MELLITUS WITHOUT COMPLICATIONS; Z79.4 - [employer] (CURRENT) USE OF INSULIN Status: Acute (6) Hyperglycemia Code(s): R73.9 - HYPERGLYCEMIA, UNSPECIFIED Status: Acute - Plan Plan: Encephalopathy DDx: post-ictal state s/p seizure vs meningitis vs encephalitis CT and MRI head showed no mass or acute CVA, only enlargement of ventricular system. EEG showed diffuse slowing, no seizure activity. LP performed with initial results showing glucose 142, protein 88, crypto negative, WBC's seen, no organisms. Currently off sedation for 24 hours and GCS 6. Prolactin 117 on admission. -Neuro on board, appreciate recs -Pulm/CC on board, appreciate recs -ID on board appreciate recs -Vanc, Rocephin, and Acyclovir to cover for infectious cause -CSF cx, Blood cx, Urine Cx, Respiratory Cx all pending Acute Respiratory Failure 2/2 Encephalopathy GCS 6 currently. Pt unable to protect airway, so was intubated. Currently off sedation, still being ventilated -Continue ventilation -Pulm/CC on board, appreciate recs -Duonebs for possible COPD component with prolonged expiration and h/o tobacco abuse -Wean once pt more alert/awake SIRS without a source DDx: meningitis vs encephalitis vs pulmonary source. Pt WBC 12 this AM, fevered yesterday afternoon, and has remained tachycardic. Had elevated Lactic acid on admission. Procalcitonin negative yesterday. -ID on board appreciate recs -Vanc, Rocephin, and Acyclovir -CSF cx, Blood cx, Urine Cx, Respiratory Cx all pending Hyperglycemia 2/2 uncontrolled type 2 DM Initial glucose 660. Pt on insulin gtt yesterday with several liters of fluid. Glucose improved to 100s and insulin gtt was stopped and pt put on sliding scale insulin. Ketones negative. Initial anion gap 15. A1c 15 -pt received 20 U SSI and remains in the 300s -Will give 10 U lantus this AM and continue to monitor. Goal glucose 140-180. OMKAR vs CKD Cr 1.15, GFR 51 this AM. s/p several liters of fluids -Will continue to monitor -Avoid nephrotoxic agents Questionable muscular dystrophy Unclear what true diagnosis is, but per has a form of a degenerative muscle disease vs being very deconditioned -Will consult PT once improved from mental status standpoint. Code status: Full VTE ppx: Lovenox GI ppx: Protonix Diet: Consider tube feeds this AM Lines/Tubes: ET tube 10/30, OG tube 10/30, stack 10/30, R IJ CVC 10/30 Dispo: Continue to monitor in ICU Addendum - Attending - Attending Attestation Date/Time: 10/31/18 1611 I personally evaluated the patient and discussed the management with Dr. Deleon at ~0925 am. I agree with the History, Examination, Assessment and Plan documented above with any addition or exceptions noted below. Encephalopathy- unknown cause- Patient has been off sedation for >24 hours and no purposeful movements. GCS 6. MRI with mild ventriculomegaly. LP did not show meninigitis. Appreciate critical care/neurology/ID input. New-onset seizures- on keppra and followed by neurology. Fever without a source- on Rocephin and Vanc and Acyclovir. [id number] lantus 10 units daily plus SSI. titrate to goal sugars <200.
[2018-10-31] MEDS ORDERED: Insulin Glargine 10 UNITS in Pre-Filled Syringe 1 EACH SC SCH (09:00)
[2018-10-31] MEDS ORDERED: Magnesium Sulfate 2 GM in Sodium Chloride 0.9% 100 ML IVPB SCH (10:15)
--- NOTE | 2018-10-31 10:27 | PDOC.EVN ---
Event Note - Event Note Event Note: Patient had change in mental status with new decerebrate posturing. Called Dr. Evans to up date him and he recommended a repeat EEG.
[2018-10-31] MEDS ORDERED: Magnesium 2 GM/50 ML 2 GM in Premix Bag 1 BAG IVPB SCH (10:30)
[2018-10-31] MEDS: Pantoprazole 40 MG VIAL IVP SCH (10:49)
--- NOTE | 2018-10-31 11:33 | PRG ---
DATE OF SERVICE: 10/31/2018 SERVICE: Pulmonary Medicine. INTERVAL HISTORY: The patient is doing okay from respiratory standpoint. Breathing is comfortable. There has been slight interval change to her neurologic condition. Otherwise, she remains off sedation. She is in no apparent distress. Nursing reports no overnight events. She cannot provide any additional elements of the history. PHYSICAL EXAMINATION: VITAL SIGNS: Afebrile, current temperature 100.7, T-max 103.2, pulse 108, blood pressure 140/76, respirations 21, saturation 100% on 30% FiO2 and a PEEP of 5. GENERAL: The patient is semi-comatose. HEENT: Normocephalic, atraumatic. Sclerae white. Conjunctivae pink. Oral mucosa is moist without lesions. LUNGS: Decent air entry. There is some rhonchi present. There is no prolonged expiratory phase or wheezing. HEART: Normal rate and regular. ABDOMEN: Soft, nontender, nondistended. Bowel sounds are positive. MUSCULOSKELETAL: No cyanosis or clubbing. There is no pitting in the bilateral lower extremities. NEUROLOGIC: She demonstrates posturing with noxious stimuli to the bilateral upper extremities. She has an upgoing Babinski on the left. She does withdraw from noxious stimuli in the bilateral lower extremities. Pupils are equal, round, and reactive. She is overbreathing the ventilator comfortably and continues to demonstrate a good cough and gag. LABORATORY DATA: WBC 12.2, hemoglobin 11.4, and platelets 219,000. Basic metabolic profile is unremarkable. Magnesium 1.3, phosphorus 3.1. Procalcitonin is negative. Urine was unremarkable. TSH fell within the normal limits. Urinalysis is unremarkable. CSF fluid had zero white blood cells in it. It was colorless. Glucose and protein were both elevated. Urine drug screen was previously unremarkable. Syphilis and HIV are negative. Body fluid culture, cryptococcus, blood culture x2, and urine culture remain negative to date. IMAGING STUDIES: Echocardiogram demonstrates normal ejection fraction. MRI of the brain demonstrates mild ventriculomegaly. No territorial infarction or intracranial mass effect is otherwise appreciated. ASSESSMENT: 1. Severe sepsis, suspected. 2. Seizure. 3. Metabolic encephalopathy. DISCUSSION AND PLAN: Her neurologic exam is focalizing to the brainstem region. The MRI did not show anything of note other than some mild ventriculomegaly. I will have Neurosurgery weigh in on these findings and correlate clinically. We will continue our empiric antibiotics and other supportive measures. In 24 hours, if she is still not more responsive and extubation will not be planned, we will initiate nutrition. Otherwise, supportive measures will be continued. Pulmonary/Critical Care will continue to follow. CRITICAL CARE TIME: 30 minutes. Job ID: [id number]
[2018-10-31] MEDS: methylPREDNISolone Sod Succ 40 MG VIAL IVP SCH ×3 (13:25→23:57)
[2018-10-31] MEDS ORDERED: Sodium Chloride 0.9% 1,000 ML IV SCH (16:00)
[2018-10-31] MEDS ORDERED: Insulin Regular 300 UNITS/3 ML VIAL SC SCH (16:00)
--- NOTE | 2018-10-31 16:07 | PDOC.EVN ---
Event Note - Event Note Event Note: Was called by nurse that patient had a tonic-clonic seizure that lasted less than 2 minutes and resolved on it's own. Then 15 minutes later the patient had a second similar seizure. 2mg ativan was given. Pt became tachypneic and remained tachycardic. She is still febrile as well. EEG was done this AM, but has not been read yet. Glucose check was in the 300's. Dr. Donnelly, Dr. Gómez, and Dr. Evans were all notified. Per their recs, will start -10 units regular insulin -bolus 1000 mL NS -Increase keppra to 1000mg BID -Restart rocephin. -Ativan 2mg prn -recheck glucose in 1 hr
[2018-10-31] MEDS ORDERED: levETIRAcetam 500 MG in Sodium Chloride 0.9% 100 ML IVPB SCH (16:15)
[2018-10-31] MEDS ORDERED: levETIRAcetam 1,000 MG in Sodium Chloride 0.9% 100 ML IVPB SCH (22:00)
[2018-10-31] MEDS: levETIRAcetam In NaCl (Iso-Os) 1,000 MG in Premix Bag 1 BAG IVPB SCH (22:00)
[2018-10-31] MEDS: Lorazepam 2 MG/ML VIAL SLOW IVP PRN (22:36)
[2018-11-01] MEDS: cefTRIAXone\\ROCEPHIN 2 GM in Sodium Chloride 0.9% 100 ML IVPB SCH
[2018-11-01] MEDS: Insulin Regular 300 UNITS/3 ML VIAL SC PRN ×6 (00:43→23:07)
[2018-11-01] MEDS: Lorazepam 2 MG/ML VIAL SLOW IVP PRN ×2 (02:11→22:51)
[2018-11-01 04:43] LABS: #Lymphocytes 0.6 thou/uL (1.20-3.40); #Monocytes 0.1 thou/uL (0.11-0.59); %Basophils 0.1 % (0.0-1.0); %Eosinophils 0.1 % (0.0-10.0); %Monocytes 1.5 % (0.0-10.0); %Neutrophils 92.3 % (42.0-75.0); Hemoglobin 9.6 g/dL (12.0-16.0); Mean Corpuscular HGB CONC 33.4 g/dL (32.0-36.0); Mean Corpuscular Volume 83.9 fL (78.0-98.0); Mean Platelet Volume 8.7 fL (7.4-10.4); Platelet Count 176 thou/uL (130-400); RBC Distribution Width 13.1 % (11.5-14.5); Red Blood Cell (RBC) Count 3.44 mill/uL (4.20-5.40); White Blood Cell (WBC) Count 9.7 thou/uL (4.8-10.8)
[2018-11-01 05:07] LABS: Anion Gap 14 mmol/L (10-20); BUN (Urea Nitrogen) 20 mg/dL (7.0-18.7); Calc. Creatinine Clearance 76 mL/min (70-130); Carbon Dioxide 22 mmol/L (22-29); Chloride 106 mmol/L (98-107); Estimated GFR-MDRD 57; Glucose 397 mg/dL (70-105); Magnesium 2.4 mg/dL (1.6-2.6); Potassium 3.7 mmol/L (3.5-5.1); Sodium 138 mmol/L (136-145)
[2018-11-01] MEDS: Lactated Ringer's 1,000 ML IV SCH ×3 (05:10→19:44)
[2018-11-01] MEDS: methylPREDNISolone Sod Succ 40 MG VIAL IVP SCH ×2 (05:52→11:45)
--- NOTE | 2018-11-01 07:26 | PDOC.FM ---
- Subjective Subjective: Per nurse pt became agitated and had spontaneous movements of her BUE and BLE early this AM. She has gotten ativan to calm her. Upon my exam the patient had a GCS of 6 with no response to pain in her BUE. Resting comfortably on ventilator - Objective MAR Reviewed: Yes Vital Signs & Weight: Vital Signs (12 hours) Temp Pulse Resp Pulse Ox 11/01/18 07:13 73 11/01/18 06:00 15 11/01/18 04:00 100.2 F H 16 100 11/01/18 02:00 18 11/01/18 00:00 99.7 F H 15 10/31/18 23:28 83 12 97 10/31/18 22:00 13 10/31/18 21:00 100.3 F H 10/31/18 20:00 14 10/31/18 19:35 100 Weight Admit Weight 69.5 kg Weight 75.4 kg Most Recent Monitor Data Heart Rate from ECG 76 NIBP 109/58 NIBP BP-Mean 75 Respiration from ECG 22 SpO2 97 I&O: 10/31/18 11/01/18 11/02/18 06:59 06:59 06:59 Intake Total 2268.3 4841 Output Total 2480 1840 Balance -211.7 3001 Result Diagrams: 11/01/18 04:30 11/01/18 04:30 Phys Exam - Physical Examination Constitutional: NAD (resting comfortably on ventilator) HEENT: moist MMs, sclera anicteric Respiratory: no wheezing, no rales, no rhonchi, clear to auscultation bilateral Cardiovascular: RRR, no significant murmur, no rub Gastrointestinal: soft, no distention Musculoskeletal: no edema, pulses present GCS 6, PERRL, brainstem reflexes intact Skin: cap refill <2 seconds Dx/Plan (1) Acute respiratory failure Code(s): J96.00 - ACUTE RESPIRATORY FAILURE, UNSP W HYPOXIA OR HYPERCAPNIA Status: Acute Qualifiers: Respiratory failure complication: hypoxia Qualified Code(s): J96.01 - Acute respiratory failure with hypoxia (2) Sepsis Code(s): A41.9 - SEPSIS, UNSPECIFIED ORGANISM Status: Acute Qualifiers: Sepsis type: sepsis due to unspecified organism Qualified Code(s): A41.9 - Sepsis, unspecified organism (3) Seizure Code(s): R56.9 - UNSPECIFIED CONVULSIONS Status: Acute (4) OMKAR (acute kidney injury) Code(s): N17.9 - ACUTE KIDNEY FAILURE, UNSPECIFIED Status: Acute (5) Diabetes mellitus type 2, insulin dependent Code(s): E11.9 - TYPE 2 DIABETES MELLITUS WITHOUT COMPLICATIONS; Z79.4 - [employer] (CURRENT) USE OF INSULIN Status: Acute (6) Hyperglycemia Code(s): R73.9 - HYPERGLYCEMIA, UNSPECIFIED Status: Acute (7) Encephalopathy acute Code(s): G93.40 - ENCEPHALOPATHY, UNSPECIFIED Status: Acute - Plan Plan: Acute Encephalopathy DDx: post-ictal state s/p seizure vs meningitis vs encephalitis. Pt had two more seizures on 10/31 that were self-resolving tonic-clonic seizures. CT and MRI head showed no mass or acute CVA, only enlargement of ventricular system. EEG showed diffuse slowing, no seizure activity. LP performed with initial results showing glucose 142, protein 88, crypto negative, WBC's seen, no organisms. Currently off sedation for 24 hours and GCS 6. Prolactin 117 on admission. Pt had acute change in neuro status yesterday with decerebrate posturing in upper extremities. Multiple attempts have been made to transfer patient urgently to a facility with continuous EEG monitoring, however, all the ICU beds are full at all facilities. She has been accepted to -Neuro on board, appreciate recs -Neurosurgery on board, appreciate recs -Pulm/CC on board, appreciate recs -ID on board appreciate recs -Vanc, Rocephin, and Acyclovir to cover for infectious cause -CSF cx, Blood cx, Urine Cx, Respiratory Cx all pending -Continue to pursue transfer, currently on wait list for ICU bed at [facility] in [place]. Doc-to-doc was completed at 1am and she was accepted pending bed availability. -Keppra 1000mg BID to prevent further seizures Acute Respiratory Failure 2/2 Encephalopathy GCS 6 currently. Pt unable to protect airway, so was intubated. Currently off sedation, still being ventilated -Continue ventilation -Pulm/CC on board, appreciate recs -Duonebs for possible COPD component with prolonged expiration and h/o tobacco abuse -Wean once pt more alert/awake SIRS without a source DDx: meningitis vs encephalitis vs pulmonary source. Pt WBC 12 on 3/20, fevered , and has remained tachycardic. Had elevated Lactic acid on admission. Procalcitonin negative -ID on board appreciate recs -Vanc, Rocephin, and Acyclovir -CSF cx, Blood cx, Urine Cx, Respiratory Cx all pending Hyperglycemia 2/2 uncontrolled type 2 DM Initial glucose 660. Pt on insulin gtt yesterday with several liters of fluid. Glucose improved to 100s and insulin gtt was stopped and pt put on sliding scale insulin. Ketones negative. Initial anion gap 15. A1c 15 -pt received 30 U SSI and remains in the 300s -Will give 20 U lantus this AM and continue to monitor. Goal glucose 140-180. OMKAR vs CKD Slowly resolving with fluids -Will continue to monitor -Avoid nephrotoxic agents Normocytic Anemia Unknown cause, pt not bleeding anywhere visible. Initial Hb 13.1, now 9.6, some could be due to hemodilution. -Will check iron studies, retic count, peripheral smear, B12, folic acid Questionable muscular dystrophy Unclear what true diagnosis is, but per has a form of a degenerative muscle disease vs being very deconditioned -Will consult PT once improved from mental status standpoint. Code status: Full VTE ppx: Lovenox GI ppx: Protonix Diet: Consider tube feeds this AM Lines/Tubes: ET tube 10/30, OG tube 10/30, stack 10/30, R IJ CVC 10/30 Dispo: Continue to monitor in ICU and attempt transfer to higher level of care Addendum - Attending - Attending Attestation Date/Time: 11/01/18 1985 I personally evaluated the patient and discussed the management with Dr. Deleon I agree with the History, Examination, Assessment and Plan documented above with any addition or exceptions noted below. Encephalitis- unknown cause. Working on transfer to higher level of care for continuous EEG monitoring. On propofol since increased agitation this morning. CSF negative for bacterial infection. Pending viral studies. Will add ESR and EARNEST to r/o autoimmune causes. Seizures- on keppra and prn ativan. [id number]. doubled basal insulin and continue aggressive SSI. If can' t get sugars <200 then restart insulin gtt. Patient accepted at [facility] once bed available.
[2018-11-01] MEDS: Propofol 1,000 MG/100 ML VIAL IV PRN ×2 (08:32→16:34)
[2018-11-01] MEDS: Pantoprazole 40 MG VIAL IVP SCH (08:32)
[2018-11-01] MEDS: levETIRAcetam In NaCl (Iso-Os) 1,000 MG in Premix Bag 1 BAG IVPB SCH ×2 (08:47→20:07)
[2018-11-01] MEDS ORDERED: Insulin Glargine 20 UNITS in Pre-Filled Syringe 1 EACH SC SCH (09:00)
[2018-11-01 10:54] LABS: Reticulocyte Count 2.1 % (0.5-1.5)
[2018-11-01 11:37] LABS: Iron 12 ug/dL (50-170); Iron Binding Capacity, Total 219 mcg/dL (265-497)
[2018-11-01 12:34] LABS: Band 8 % (5-11); Hemoglobin 9.6 g/dL (12.0-16.0); Lymphocytes 6 % (21-51); MDiff Complete? YES; Mean Corpuscular HGB CONC 32.1 g/dL (32.0-36.0); Mean Corpuscular Hemoglobin 27.2 pg (27.0-31.0); Mean Corpuscular Volume 84.8 fL (78.0-98.0); Mean Platelet Volume 8.9 fL (7.4-10.4); Monocytes 2 % (0-10); Neutrophil 81 % (42-75); Ovalocytes SLIGHT = 2-5 cells (100X) (0-1/hpf); Platelet Count 199 thou/uL (130-400); Platelet Morphology Comment Appears Adequate; Polychromasia SLIGHT = 2-3 cells (100X) (0-2/hpf); RBC Distribution Width 13.3 % (11.5-14.5); Reactive Lymphocytes 2 % (0-10); Red Blood Cell (RBC) Count 3.54 mill/uL (4.20-5.40); White Blood Cell (WBC) Count 9.8 thou/uL (4.8-10.8)
--- NOTE | 2018-11-01 13:07 | PQF ---
DATE: 11-01-18 ATTN: DR. LEEANNE JEAN-BAPTISTE Please exercise your independent, professional judgment in responding to the clarification form. Clinical indicators are provided on the bottom of this form for your review Diagnosis: ACUTE SEPSIS Present on Admission (POA): [ x ] Yes [ ] No [ ] Unable to determine Coding guidelines require hospitals to identify whether a diagnosis was present on admission (POA) or not. To accurately assign the appropriate POA indicator, this information must be clearly documented within the medical record. CLINICAL INDICATORS - SIGNS / SYMPTOMS / LABS H&P 10-30-18: SEIZURE, LACTIC ACIDOSIS, OMKAR, HYPERGLYCEMIA, NO LEUKOCYTOSIS OR FEVER, UA NO SIGNS OF INFECTION, NOT ON ANTIBIOTICS. PN DR. LEEANNE JEAN-BAPTISTE 10-31-18: ACUTE RESPIRATORY FAILURE, ACUTE SEPSIS, SEIZURES , OKMAR, SIRS W/O SOURCE WBC: 10-30-18: 6.2 10-31-18: 12.2 11-01-18: 9.7, 9.8 LACTIC ACID: 10-30-18: 4.0, 3.1 10-31-18: 1.9 RISK FACTORS: PN DR. LEEANNE JEAN-BAPTISTE 10-31-18: ACUTE RESPIRATORY FAILURE, ACUTE SEPSIS, SEIZURES, OMKAR, SIRS W/O SOURCE , ENCEPHALOPATHY- UNKNOWN CAUSE TREATMENT: MAR: 11-01-18: ROCEPHIN IV, KEPPRA 10-31-18, LR IVF 10-31-18, ZOVIRAX IV 10-30-18, VANCOMYCIN IV 10-31-18 (This form is maintained as a part of the permanent medical record) 2014 [employer], [employer]. All Rights Reserved [employer]
--- NOTE | 2018-11-01 14:41 | PRG ---
DATE OF SERVICE: 11/01/2018 This is a 30 minute initial hospital visit note, in which 30 minutes were spent reviewing the imaging record, evaluation, examination of the patient, formulation of plan. Greater than 50% time was spent in counseling on Jasmina Tucker. SUBJECTIVE: I was asked to see Ms. Tucker as there was concern of ventriculomegaly on MRI. I have reviewed her imaging. Notably, her MRI of the brain without and with contrast along with her CTA of the brain and neck, I see no structural abnormality to be accounting for her presentation. Frankly to me, it appears that the patient may be in status epilepticus. There have been two portable EEGs by report that have been negative for epileptiform or epileptogenic activity. However, my concern here on this patient would be nonlesional epilepsy. I would not recommend any surgical intervention. I should note her lumbar puncture was negative for any obvious abnormality at this point. There are arrangements being made for likely transfer to another facility for continuous EEG monitoring to try and ascertain appropriate treatment going forward. She is already on antiepileptics. Job ID: [id number]
--- NOTE | 2018-11-01 15:29 | PRG ---
DATE OF SERVICE: 11/01/2018 SUBJECTIVE: The patient continues to have altered mental status. Neurosurgery has evaluated the patient because of possible ventriculomegaly, but that was felt not to be significant by Dr. Carias. She is being monitored with continuous EEG in [place]. OBJECTIVE: VITAL SIGNS: Temperature max 101, she is now 98.1; BP 110/61; pulse 66. HEENT: The pupils are equal. She has no movements other than involuntary, but no patterned tonic clonic movements. LUNGS: Sounds are clear. HEART: S1, S2. Regular rate. ABDOMEN: Soft, not distended. LABORATORY DATA: White cell count 9.8, hemoglobin 9.6, platelets 199, 81% neutrophils. Sodium 138, creatinine 1.05, iron 12, TIBC 219, ferritin 101, B12 of 431. Microbiology with tracheal aspirate with positive for group B strep, Strep pneumo, probably just colonizers. Echocardiogram report with normal findings, although some technical issues were present with evaluation of the aortic valve. ASSESSMENT AND DISCUSSION: New-onset of seizure activity, tonic clonic in nature, postictal phenomenon, possible status epilepticus. CSF is pending for herpes simplex, but that is less likely. The patient to be transferred to [place] for monitoring of EEG in a continuous form. She is still on acyclovir and we will continue until we have the negative results of the HSV PCR. Job ID: [id number] [facility]
--- NOTE | 2018-11-01 16:09 | PRG ---
DATE OF SERVICE: 11/01/2018 INTERVAL HISTORY: The patient is doing poorly from a neurologic standpoint. She got put on some propofol overnight because she was coughing and bucking the ventilator. She had multiple PVCs. Otherwise, there was no interval change to her condition. She is not following any commands at this point. Nursing reports no additional overnight events. PHYSICAL EXAMINATION: VITAL SIGNS: Currently, afebrile. Her T-max overnight was 101.5. Pulse 66, blood pressure 116/66, respirations 11, saturation 100% on 30% FiO2 and a PEEP of 5. GENERAL: The patient is intubated. She is under the influence of some sedation. HEENT: Normocephalic and atraumatic. Sclerae white. Conjunctivae pink. Oral mucosa is moist without lesions. LUNGS: Rhonchi are present. They are scattered. They are minimal. There is no prolonged expiratory phase or wheezing appreciated. HEART: Normal rate, regular. ABDOMEN: Soft, nontender, nondistended. Bowel sounds are positive. MUSCULOSKELETAL: No cyanosis or clubbing. No pitting in the bilateral lower extremities. NEUROLOGIC: She has pupils that are equal, round, and reactive. She coughs to gags and overbreathes the ventilator. Doll's eyes are normal. That being said, with noxious stimuli to the bilateral upper extremity, she postures. She has upgoing Babinski in the bilateral lower extremities. She demonstrates a crossed extensor reflex in bilateral lower extremities, but nothing that I would characterize as with overt withdrawal. LABORATORY DATA: WBC 9.8, hemoglobin 9.6. Neutrophil is 81% on top of 8% bands. Lymphocyte count remains low. Reticulocyte count is 2.1%. ESR is 66, significantly elevated. Basic metabolic profile is essentially unremarkable otherwise. The creatinine is downtrending to 1.05, potassium 3.7. Iron and TIBC are low. Ferritin level is at the lower limits of normal. Vitamin B12 is 431. Urine drug screen is unremarkable. Syphilis and HIV are negative. Tracheal aspirate is growing Streptococcus pneumoniae. There is also a second thing growing Streptococcus agalactiae. Blood cultures x2, urine culture, and CSF culture negative to date. Cryptococcal antigen is unremarkable. ASSESSMENT: 1. Severe sepsis, suspected. 2. Encephalopathy, unknown etiology. 3. Status epilepticus. 4. Abnormal neurologic exam focalizing to brainstem despite negative LP and MRI. DISCUSSION AND PLAN: We are working on transitioning the patient out of our hospital to a tertiary care center that can do continuous EEG monitoring. We will continue best supportive care here until this transition can be arranged. We will initiate tube feeds, and follow laboratories through time. Pulmonary/Critical Care will continue to follow along. Critical care time: 30 minutes. Job ID: [id number] [facility]TDD
--- NOTE | 2018-11-01 17:09 | PRG ---
DATE OF SERVICE: 11/01/2018 Ms. Tucker has not had any further seizures since her last evaluation. Her vital signs remain stable and saturations remain good. She is much more responsive today. She is responding to stimulation of the distal extremities. I could not get her to maintain any eye opening. She has good roving eye movements that are conjugate. She is gagging on the ET tube a bit. She has spontaneous antigravity movements in both upper extremities. No other abnormal movements were seen. Her repeat EEG showed an improvement in her background activity. She was in a theta frequency, which was significantly better than the delta frequency we saw during the first study. No epileptiform features were present. Given the continued improvement, I would continue supportive measures. It is possible that she may be an unusual case of a prolonged postictal phase given the lack of anatomic abnormalities, otherwise. I will follow up with her tomorrow. Job ID: [id number]
[2018-11-01] MEDS ORDERED: Insulin Glargine 10 UNITS in Pre-Filled Syringe 1 EACH SC SCH (17:30)
[2018-11-01] MEDS ORDERED: Ondansetron PF 4 MG/2 ML Vial IVP PRN (21:15)
[2018-11-02] MEDS: cefTRIAXone\\ROCEPHIN 2 GM in Sodium Chloride 0.9% 100 ML IVPB SCH (00:09)
[2018-11-02] MEDS: Propofol 1,000 MG/100 ML VIAL IV PRN ×4 (00:43→18:50)
[2018-11-02] MEDS: Lactated Ringer's 1,000 ML IV SCH ×2 (01:39→15:30)
[2018-11-02] MEDS: Insulin Regular 300 UNITS/3 ML VIAL SC PRN ×3 (03:09→15:58)
[2018-11-02 05:03] LABS: #Lymphocytes 1.6 thou/uL (1.20-3.40); #Monocytes 0.5 thou/uL (0.11-0.59); #Neutrophils 6.3 thou/uL (1.40-6.50); %Basophils 0.3 % (0.0-1.0); %Eosinophils 0.1 % (0.0-10.0); %Lymphocytes 19.1 % (21.0-51.0); %Monocytes 5.4 % (0.0-10.0); %Neutrophils 75.1 % (42.0-75.0); Hemoglobin 9.5 g/dL (12.0-16.0); Mean Corpuscular HGB CONC 32.3 g/dL (32.0-36.0); Mean Corpuscular Hemoglobin 27.4 pg (27.0-31.0); Mean Corpuscular Volume 84.8 fL (78.0-98.0); Platelet Count 218 thou/uL (130-400); RBC Distribution Width 13.1 % (11.5-14.5); Red Blood Cell (RBC) Count 3.45 mill/uL (4.20-5.40); White Blood Cell (WBC) Count 8.4 thou/uL (4.8-10.8)
[2018-11-02 05:18] LABS: Anion Gap 8 mmol/L (10-20); BUN (Urea Nitrogen) 23 mg/dL (7.0-18.7); Calc. Creatinine Clearance 113 mL/min (70-130); Calcium 7.9 mg/dL (7.8-10.44); Carbon Dioxide 27 mmol/L (22-29); Chloride 108 mmol/L (98-107); Estimated GFR-MDRD 82; Glucose 192 mg/dL (70-105); Potassium 3.4 mmol/L (3.5-5.1); Sodium 140 mmol/L (136-145)
--- NOTE | 2018-11-02 07:35 | CON ---
DATE OF CONSULTATION: 11/02/2018 HISTORY OF PRESENT ILLNESS: Ms. Tucker remained stable overnight. Vital signs have been stable. She has been afebrile. No seizure activity was recorded. She would briefly open her eyes to stimulation this morning. She withdraws to stimulation of her feet. She moves her upper extremities purposefully, could not get her to follow any commands. She, otherwise, appears to be a bit better than she was last evening. We will continue the Keppra and continue hope the things improve as the day progresses. Job ID: [id number]
[2018-11-02] MEDS ORDERED: methylPREDNISolone Sod Succ 40 MG VIAL IVP SCH (09:00)
[2018-11-02] MEDS ORDERED: Insulin Glargine 35 UNITS in Pre-Filled Syringe 1 EACH SC SCH (09:00)
--- NOTE | 2018-11-02 09:11 | EEG ---
Referring Physician: Miguel Angel MTZ EEG # [id number] TEST TYPE: PORTABLE INPATIENT REPORT: AN EEG USING THE INTERNATIONAL TEN-TWENTY SYSTEM OF ELECTRODE PLACEMENT WAS PERFORMED. This is a follow-up EEG. With comparison to the prior study, the background activity continues to show diffuse slowing. There is a bit more Theta activity than there was on the prior study. No epileptiform features were present. Photic stimulation did not alter the background. IMPRESSION: THIS IS AN ABNORMAL STUDY FOR THE FINDINGS OF DIFFUSE SLOWING WHICH IS SOMEWHAT BETTER THAN THE PRIOR STUDY FROM THE DAY BEFORE. NO EPILEPTIFORM ACTIVITY WAS NOTED. Head Field Hockey Coach: KEESHA Shank Inspector: EEG.MS MTDCasa
[2018-11-02] MEDS: levETIRAcetam In NaCl (Iso-Os) 1,000 MG in Premix Bag 1 BAG IVPB SCH (09:23)
[2018-11-02] MEDS: Pantoprazole 40 MG VIAL IVP SCH (09:24)
--- NOTE | 2018-11-02 09:51 | PDOC.FM ---
- Subjective Subjective: Patient evaluated on sedation this AM. Per the nurses she had been taken off sedation and became agitated and pulled at the ET tube. She was somewhat more responsive this AM, withdrawing to pain in all 4 extremities. - Objective MAR Reviewed: Yes Vital Signs & Weight: Vital Signs (12 hours) Temp Pulse Resp Pulse Ox 11/02/18 07:20 64 11/02/18 07:00 97.9 F 11/02/18 06:00 11 L 11/02/18 04:00 11 L 11/02/18 03:00 98.7 F 11/02/18 02:00 14 11/02/18 00:00 11 L 11/01/18 23:03 75 11 L 100 11/01/18 23:00 98.1 F 11/01/18 22:00 11 L Weight Admit Weight 76.4 kg Weight 76.4 kg Most Recent Monitor Data Heart Rate from ECG 83 NIBP 91/69 NIBP BP-Mean 76 Respiration from ECG 12 SpO2 100 I&O: 11/01/18 11/02/18 11/03/18 06:59 06:59 06:59 Intake Total 4841 3515 Output Total 1840 1558 90 Balance 3001 1956 Result Diagrams: 11/02/18 04:08 11/02/18 04:08 Phys Exam - Physical Examination Constitutional: NAD (resting comfortably sedated on ventilator) HEENT: PERRLA (abnormal lateral eye movements), moist MMs, sclera anicteric Respiratory: no wheezing, no rales, no rhonchi, clear to auscultation bilateral Cardiovascular: RRR, no significant murmur, no rub Gastrointestinal: soft, non-tender, no distention, positive bowel sounds Musculoskeletal: pulses present, edema present (trace edema in all 4 extremities ) sedated, abnormal eye movements, withdraws to pain Skin: normal turgor, cap refill <2 seconds Dx/Plan (1) Acute respiratory failure Code(s): J96.00 - ACUTE RESPIRATORY FAILURE, UNSP W HYPOXIA OR HYPERCAPNIA Status: Acute Qualifiers: Respiratory failure complication: hypoxia Qualified Code(s): J96.01 - Acute respiratory failure with hypoxia (2) Sepsis Code(s): A41.9 - SEPSIS, UNSPECIFIED ORGANISM Status: Acute Qualifiers: Sepsis type: sepsis due to unspecified organism Qualified Code(s): A41.9 - Sepsis, unspecified organism (3) Seizure Code(s): R56.9 - UNSPECIFIED CONVULSIONS Status: Acute (4) OMKAR (acute kidney injury) Code(s): N17.9 - ACUTE KIDNEY FAILURE, UNSPECIFIED Status: Acute (5) Hyperglycemia Code(s): R73.9 - HYPERGLYCEMIA, UNSPECIFIED Status: Acute (6) Encephalopathy acute Code(s): G93.40 - ENCEPHALOPATHY, UNSPECIFIED Status: Acute (7) Status epilepticus Code(s): G40.901 - EPILEPSY, UNSP, NOT INTRACTABLE, WITH STATUS EPILEPTICUS Status: Suspected (8) Diabetes mellitus type 2, insulin dependent Code(s): E11.9 - TYPE 2 DIABETES MELLITUS WITHOUT COMPLICATIONS; Z79.4 - GROUP HOME (CURRENT) USE OF INSULIN Status: Acute - Plan Plan: Acute Encephalopathy DDx: post-ictal state s/p seizure vs status epilepticus vs encephalitis. Pt had two more seizures on 10/31 that were self-resolving tonic-clonic seizures. CT and MRI head showed no mass or acute CVA, only enlargement of ventricular system. EEG showed diffuse slowing, no seizure activity. LP performed with initial results showing glucose 142, protein 88, crypto negative, WBC's seen, no organisms. Prolactin 117 on admission. Pt had acute change in neuro status on 10/31 with decerebrate posturing in upper extremities. Multiple attempts have been made to transfer patient urgently to a facility with continuous EEG monitoring, however, all the ICU beds are full at all facilities. She has been accepted to [facility] in [place], but they are pending an ICU bed. The patient is having fluctuations in her neurologic status, which is concerning for continued seizures that are not tonic-clonic in nature. -Neuro on board, appreciate recs -Neurosurgery on board, appreciate recs -Pulm/CC on board, appreciate recs -ID on board appreciate recs -Rocephin, and Acyclovir to cover for infectious cause -CSF cx, Blood cx, Urine Cx negative to date -Respiratory culture growing strep pneumo and GBS -Continue to pursue transfer, currently on wait list for ICU bed at [facility] in [place]. Doc-to-doc was completed and she was accepted pending bed availability. -Keppra 1000mg BID to prevent further seizures Status Epilepticus, suspected -Plan as above Acute Respiratory Failure 2/2 Encephalopathy GCS improved off sedation, but 6 while sedated. Pt unable to protect airway, so was intubated. -Continue ventilation -Pulm/CC on board, appreciate recs -Duonebs for possible COPD component with prolonged expiration and h/o tobacco abuse -Wean once pt more alert/awake SIRS without a source DDx: encephalitis vs pulmonary source. Pt WBC 12 on 10/31, fevered, and has remained tachycardic. Had elevated Lactic acid on admission. Procalcitonin negative. Respiratory culture growing strep pneumo and GBS -ID on board appreciate recs -Rocephin, and Acyclovir -CSF cx, Blood cx, Urine Cx NGTD Hyperglycemia 2/2 uncontrolled type 2 DM Initial glucose 660. Pt on insulin gtt yesterday with several liters of fluid. Glucose improved to 100s and insulin gtt was stopped and pt put on sliding scale insulin. Ketones negative. Initial anion gap 15. A1c 15 -Will give 35 U lantus this AM and continue to monitor. Goal glucose 140-180. -Aggressive SSI OMKAR vs CKD Slowly resolving with fluids -Will continue to monitor -Avoid nephrotoxic agents Normocytic Anemia Unknown cause, pt not bleeding anywhere visible. Initial Hb 13.1, now 9.6, some could be due to hemodilution. -Iron studies normal, B12 normal. -Peripheral smear just showed normocytic anemia. Hb stable, likely hemodilution Questionable muscular dystrophy Unclear what true diagnosis is, but per has a form of a degenerative muscle disease vs being very deconditioned -Will consult PT once improved from mental status standpoint. Code status: Full VTE ppx: Lovenox GI ppx: Protonix Diet: Tube feeds at 30mL/hr Lines/Tubes: ET tube 10/30, OG tube 10/30, stack 10/30, R IJ CVC 10/30 Dispo: Continue to monitor in ICU and attempt transfer to higher level of care Addendum - Attending - Attending Attestation Date/Time: 11/02/18 [id number] I personally evaluated the patient and discussed the management with Dr. Deleon I agree with the History, Examination, Assessment and Plan documented above with any addition or exceptions noted below. Encephalopathy- encephalitis vs seizures/status epilepticus- awaiting transfer to [facility]. Acute respiratory failure- continue vent per pulmonology Strep pneumonia CAP- continue Rocephin t2dm- continue insulin titration
[2018-11-02 12:14] LABS: HSV 2 - DNA Negative (Negative); West Nile Virus IgG Ab - CSF Negative (Negative); West Nile Virus IgM Ab - CSF Negative (Negative)
[2018-11-02 14:06] VITALS: BMI 29.8
[2018-11-02 15:17] LABS: Folate,Hemolysate 461.8 ng/mL (Not Estab.); RBC Folate Test Component 1649 ng/mL (>498)
--- NOTE | 2018-11-02 15:30 | PRG ---
DATE OF SERVICE: 11/02/2018 SERVICE: Pulmonary Medicine. INTERVAL HISTORY: [place], the patient actually improved a little bit overnight. This morning, she would open her eyes and attend. She was withdrawn from the upper extremities. She was actually moving her lower extremities on command. As such, we interrupted the propofol in hopes of being able to give her a spontaneous breathing trial in extubation. Later on, when we checked on her, she was doing some lip-smacking and went back to having bilateral upper extremity posturing and bilateral lower extremity upgoing toes. She was once again nonresponsive and had a downward gaze preference with roving eyes from time to time. She was placed back on propofol. She cannot provide any additional elements of the history. PHYSICAL EXAMINATION: VITAL SIGNS: Afebrile, pulse 73, blood pressure 102/62, respirations 13, and saturation 99% on 21% FiO2 and a PEEP of 5. HEENT: Normocephalic and atraumatic. Sclerae white. Conjunctivae pink. Oral mucosa is moist without lesions. LUNGS: Decent air entry. There is rhonchi present. No prolonged expiratory phase or wheezing is appreciated. HEART: Normal rate and regular. ABDOMEN: Soft, nontender, and nondistended. Bowel sounds are positive. MUSCULOSKELETAL: No cyanosis or clubbing. There is no pitting in the bilateral lower extremities. LABORATORY DATA: WBC 8.4, hemoglobin 9.5, and platelets 218,000. Creatinine is 0.76, anion gap 8, chloride 108, and potassium 3.4. Basic metabolic profile is otherwise unremarkable. The CSF is only remarkable for a total protein that is elevated. Otherwise, West Nile virus titers are unremarkable. HSV 1 and 2 are negative, HIV is negative, and syphilis is nonreactive. Streptococcus is growing in the respiratory culture, which is pansensitive. Cryptococcal antigen is unremarkable. Spinal fluid cultures negative, blood cultures x2 and urine culture also unremarkable. ASSESSMENT: 1. Severe sepsis. 2. Community-acquired pneumonia secondary to Streptococcus, improving. 3. Status epilepticus, suspected. 4. Abnormal neurologic exam, intermittently focalizing to the brainstem despite negative LP and MRI. DISCUSSION AND PLAN: We are awaiting transition of this patient to a Tertiary Care Center, where continuous EEG monitoring is available. In the meantime, supportive measures including anti-epileptic drugs, antibiotics, ventilator support, and steroids will be continued. I have decreased her FiO2 down to 21% as she truly does not have a hypoxic failure. CRITICAL CARE TIME: Thirty minutes. Job ID: [id number]
[2018-11-02 15:32] VITALS: BP 120/68
--- NOTE | 2018-11-02 15:57 | PRG ---
DATE OF SERVICE: 11/02/2018 SUBJECTIVE: Ms. Tucker is still intubated in the ICU. She is sedated. OBJECTIVE: VITAL SIGNS: Show T-max of 98.3, blood pressure 112/62, O2 saturation 98% on 40% and 5. HEENT: Pupils are miotic from sedation. LUNGS: Symmetric air entry. ABDOMEN: Soft, could not elicit any movements from appendicular structures. LABORATORY DATA: White cell count 8.4, hemoglobin 9.5, platelets 218 with 75% neutrophils and creatinine 0.76. Herpes simplex DNA PCR negative. Syphilis negative. HIV negative. The latest EEG from yesterday with diffuse slowing without any epileptiform activity. ASSESSMENT AND DISCUSSION: New onset seizure activity, tonic clonic in nature, postictal phenomenon, possible status epilepticus, although that has not yet been documented. CSF did not show any abnormalities in cell count. A little bit of elevation in protein. The herpes simplex assays were negative. Discontinue acyclovir. She is on Rocephin for the possibility of an early lower respiratory tract infection. Job ID: [id number]
[2018-11-02 17:09] VITALS: TEMP 97.9
--- NOTE | 2018-11-05 09:32 | DIS ---
DATE OF ADMISSION: 10/30/2018 DATE OF DISCHARGE: 11/02/2018 ADMITTING ATTENDING: Morales Thorpe MD CONSULTS: 1. Dr. Donnelly with Pulmonology. 2. Dr. Carias with Neurosurgery. 3. Dr. Evans with Neurology. 4. Dr. Gómez with Infectious Disease. PROCEDURES: Lumbar puncture on 10/30/2018. IMAGING STUDIES: 1. Brain CT showed no acute intracranial findings or hemorrhage, diffuse cerebral atrophy accelerated for the patient's age of 43. 2. CTA of the brain within normal limits. 3. Chest x-ray showed unremarkable chest x-ray. 4. Brain MRI showed mild enlargement of the ventricular system. No acute infarction or intracranial mass effect. 5. EEG showed diffuse slowing and suppression consistent with diffuse encephalopathic process. 6. Echocardiogram showed ejection fraction of 55% to 60%. Mild mitral regurgitation, mild tricuspid regurgitation. PRIMARY DIAGNOSES: 1. Status epilepticus. 2. Acute encephalopathy. 3. Acute respiratory failure secondary to encephalopathy. 4. Systemic inflammatory response syndrome without a source. 5. Hyperglycemia. 6. Acute kidney injury. SECONDARY DIAGNOSES: 1. Uncontrolled type 2 diabetes. 2. Normocytic anemia. 3. Questionable muscular dystrophy. DISCHARGE MEDICATIONS: 1. Acyclovir q.8 hours. 2. Rocephin 2 g q.24 hours. 3. Lantus 35 units daily. 4. Keppra 1000 mg b.i.d. 5. Solu-Medrol 40 mg IV push daily. 6. Protonix 40 mg IV push daily. DISCONTINUED MEDICATIONS: None. HISTORY OF PRESENT ILLNESS/HOSPITAL COURSE: This is a 43-year-old female who presented to the ER after a seizure that was witnessed by her . The patient prior to presentation in the ER was apparently in and out of a confused state. The patient upon arrival was unable to protect her airway and was encephalopathic, so she was intubated and sedated. The patient was found to have an initial glucose of 660, so she was started on insulin drip for this. There were no ketones and no hyperosmolar syndrome. 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 The patient had been on propofol and when that was weaned, she continued to have a GCS of around 6 and then on her second day of hospitalization, she started posturing with the cerebral posturing. The decision was made to attempt to urgently transfer the patient to a facility that had a 24-hour EEG monitoring. The patient had 2 EEGs during her hospitalization that showed diffuse slowing and no epileptic activity. The patient was on acyclovir, Rocephin, and vancomycin during her hospitalization to cover for infectious cause of her symptoms. She had a lumbar puncture that was normal. The patient was evaluated by Neurology, who agreed to start the patient on Keppra initially 500 mg b.i.d. and this was increased to 1000 mg b.i.d. The patient did begin to wake up a little bit off the propofol, however, then she seized again two times on her second day of hospitalization and another time later, she had been attempted to be placed on CPAP and then had to be ventilated again and started again on propofol. The patient appeared to be in status epilepticus with recurrent seizures and not returning to baseline between. However, due to not being able to find seizure activity on our EEGs, she would need to be at a facility with continuous EEG monitoring. The patient did have mild ventriculomegaly on MRI; however, Neurosurgery did not seem to think that this was a surgical problem. The patient's cultures did not grow anything; however, she was continued on Rocephin and acyclovir. Her cryptococcus came back negative. HSV and HIV came back negative. Syphilis was negative. West Nile was negative. Her EARNEST was negative. Her ESR was elevated at 66. The patient was accepted to [facility] and was transferred on 11/02/2018. She was still intubated and sedated on propofol for her transfer. DISPOSITION: Critical. DISCHARGE INSTRUCTIONS: 1. Location, [facility] 2. Diet, n.p.o. 3. Activity, bed rest. 4. Follow up with her PCP within 7 days of being discharged from the hospital. Job ID: [id number] [facility]
[2018-11-05 15:54] LABS: ANA Symphony (Qualitative) Negative (Negative); ANA Symphony (Quantitative) 0.1 Ratio (< 0.7 Negative); dsDNA IgG Antibody 5.3 IU/mL (<10 Negative)
== END 2018-11-02 18:50 | disposition short-term general hospital (02) | DRG 100 ==
LOC: ERS 01:56 → CCU 03:30
PROVIDERS: ADMIT Emergency Medicine; ATTEND Emergency Medicine
PROC: 5A1945Z Respiratory Ventilation, 24-96 Consecutive Hours (ICD-10-PCS; principal; 2018-10-30)
PROC: 0T9B70Z Drainage of Bladder with Drainage Device, Via Natural or Artificial Opening (ICD-10-PCS; 2018-10-30)
PROC: 0BH17EZ Insertion of Endotracheal Airway into Trachea, Via Natural or Artificial Opening (ICD-10-PCS; 2018-10-30)
PROC: 009U3ZX Drainage of Spinal Canal, Percutaneous Approach, Diagnostic (ICD-10-PCS; 2018-10-30)
PROC: 02H633Z Insertion of Infusion Device into Right Atrium, Percutaneous Approach (ICD-10-PCS; 2018-10-30)
DX: G40.901 Epilepsy, unspecified, not intractable, with status epilepticus (principal); A41.9 Sepsis, unspecified organism; R65.20 Severe sepsis without septic shock; G93.41 Metabolic encephalopathy; J96.01 Acute respiratory failure with hypoxia; E87.2 Acidosis; N17.9 Acute kidney failure, unspecified; E11.65 Type 2 diabetes mellitus with hyperglycemia; G71.00 Muscular dystrophy, unspecified; D64.9 Anemia, unspecified; Z91.14 Patient's other noncompliance with medication regimen; Z87.891 Personal history of nicotine dependence; Z88.6 Allergy status to analgesic agent; Z88.0 Allergy status to penicillin; Z79.4 Long term (current) use of insulin
CPT/HCPCS: 31500; 36415; 36416; 36556; 51702; 62270; 70450; 70496; 70498; 70553; 71045; 80048; 80053; 80061; 80306; 80307; 81003; 81015; 82010; 82550; 82607; 82728; 82747; 82805; 82945; 83036; 83540; 83550; 83605; 83735; 83930; 84100; 84145; 84146; 84157; 84443; 84703; 85025; 85046; 85060; 85652; 86038; 86225; 86780; 86788; 86789; 87040; 87070; 87077; 87086; 87186; 87205; 87389; 87529; 87899; 89051; 93306; 94002; 94003; 94640; 95816; 95819; 96360; 96365; 96366; 96368; 96375; 99292; A9577; C9113; J0133; J0696; J1815; J1825; J1953; J2060; J2250; J2310; J2405; J2704; J2920; J3010; J3370; J3475; J3480; J7050; J7620; Q9966

== ENCOUNTER 2019-05-17 17:27 | Emergency (ER) | payer BC ==
[2019-05-17 18:47] LABS: #Lymphocytes 1.5 thou/uL (1.20-3.40); #Monocytes 0.3 thou/uL (0.11-0.59); #Neutrophils 4.5 thou/uL (1.40-6.50); %Basophils 0.5 % (0.0-1.0); %Eosinophils 0.5 % (0.0-10.0); %Lymphocytes 22.8 % (21.0-51.0); %Monocytes 4.8 % (0.0-10.0); %Neutrophils 71.4 % (42.0-75.0); Hemoglobin 10.4 g/dL (12.0-16.0); Mean Corpuscular HGB CONC 34.8 g/dL (32.0-36.0); Mean Corpuscular Hemoglobin 28.3 pg (27.0-31.0); Mean Corpuscular Volume 81.1 fL (78.0-98.0); Mean Platelet Volume 9.1 fL (7.4-10.4); Platelet Count 202 thou/uL (130-400); RBC Distribution Width 12.3 % (11.5-14.5); Red Blood Cell (RBC) Count 3.68 mill/uL (4.20-5.40); White Blood Cell (WBC) Count 6.4 thou/uL (4.8-10.8)
[2019-05-17] MEDS ORDERED: Metoclopramide HCl 10 MG/2 ML VIAL ONE (18:54)
[2019-05-17] MEDS ORDERED: diphenhydrAMINE 50 MG/ML VIAL ONE (18:54)
[2019-05-17 19:06] LABS: Anion Gap 12 mmol/L (10-20); BUN (Urea Nitrogen) 23 mg/dL (7.0-18.7); Calc. Creatinine Clearance 0 mL/min (70-130); Calcium 9.1 mg/dL (7.8-10.44); Carbon Dioxide 25 mmol/L (22-29); Chloride 100 mmol/L (98-107); Estimated GFR-MDRD 57; Glucose 369 mg/dL (70-105); Potassium 4.3 mmol/L (3.5-5.1); Sodium 133 mmol/L (136-145)
--- NOTE | 2019-05-17 19:12 | CT ---
CT head without contrast: Multiple axial tomograms obtained through the head without IV enhancement. INDICATIONS: Headache COMPARISON: None FINDINGS: Ventricles have normal size and position. No evidence of intracranial mass, hemorrhage, edema, or infarct. Visualized sinuses and mastoids appear clear. Bony calvarium appears unremarkable. IMPRESSION: No acute finding
--- NOTE | 2019-05-21 17:03 | EKG ---
Test Reason : Blood Pressure : / mmHG Vent. Rate : 088 BPM Atrial Rate : 088 BPM P-R Int : 142 ms QRS Dur : 062 ms QT Int : 336 ms P-R-T Axes : 068 064 043 degrees QTc Int : 406 ms Normal sinus rhythm Confirmed by MARK JONES DO ([id number]), news video editor SUNITHA AMAYA ([id number]) on 05/21/2019 5:03:23 PM Referred By: Confirmed By:MARK JONES DO
== END 2019-05-17 19:47 | disposition left against medical advice (07) ==
LOC: ERS 17:27
DX: G45.9 Transient cerebral ischemic attack, unspecified (principal); E10.9 Type 1 diabetes mellitus without complications
CPT/HCPCS: 36416; 70450; 80048; 84484; 85025; 93005; 96365; 96375; J1200; J2765

== ENCOUNTER 2021-03-04 05:38 | Day surgery (SDC) | payer BC, MEDICAID ==
[2021-03-03 10:25] VITALS: BMI 22.4
[2021-03-04] MEDS ORDERED: Levofloxacin 500 mg/D5W 100 ml Premix Bag ONE (06:14)
[2021-03-04] MEDS ORDERED: Acetaminophen 500 MG TAB ONE (06:14)
[2021-03-04] MEDS ORDERED: Ondansetron PF 4 MG/2 ML Vial ONE (06:20)
[2021-03-04] MEDS ORDERED: Fentanyl 100 MCG/2 ML VIAL ONE (06:20)
[2021-03-04] MEDS ORDERED: Propofol 500 MG/50 ML VIAL ONE ×2 (06:20→06:59)
[2021-03-04 06:25] LABS: #Eosinphils 0.2 thou/uL (0.0-0.7); #Lymphocytes 1.3 thou/uL (1.20-3.40); #Monocytes 0.6 thou/uL (0.11-0.59); #Neutrophils 3.2 thou/uL (1.40-6.50); %Basophils 0.9 % (0.0-1.0); %Eosinophils 3.4 % (0.0-10.0); %Lymphocytes 24.6 % (21.0-51.0); %Monocytes 11.1 % (0.0-10.0); Mean Corpuscular HGB CONC 33.1 g/dL (32.0-36.0); Mean Corpuscular Hemoglobin 31.1 pg (27.0-31.0); Mean Corpuscular Volume 94.2 fL (78.0-98.0); Mean Platelet Volume 8.1 fL (7.4-10.4); Platelet Count 216 thou/uL (130-400); Red Blood Cell (RBC) Count 2.88 mill/uL (4.20-5.40); White Blood Cell (WBC) Count 5.3 thou/uL (4.8-10.8)
[2021-03-04] MEDS ORDERED: Bupivacaine 0.25% HCL 30 ML VIAL ONE (06:42)
[2021-03-04] MEDS ORDERED: Lidocaine 1% w/Epinephrine 1:100K 20 ML VIAL ONE (06:42)
[2021-03-04] MEDS ORDERED: Protamine Sulfate 50 MG/5 ML VIAL ONE (06:42)
[2021-03-04] MEDS ORDERED: Heparin 5,000 UNITS/ML VIAL ONE (06:42)
[2021-03-04 06:50] LABS: Anion Gap 15 mmol/L (10-20); BUN (Urea Nitrogen) 35 mg/dL (7.0-18.7); Calc. Creatinine Clearance 17 mL/min (70-130); Calcium 8.8 mg/dL (7.8-10.44); Carbon Dioxide 27 mmol/L (22-29); Chloride 100 mmol/L (98-107); Glucose 288 mg/dL (70-105); Potassium 4.2 mmol/L (3.5-5.1); Sodium 138 mmol/L (136-145)
[2021-03-04] MEDS ORDERED: Bupivacaine HCl 0.5%/Epinephrine 1:200,000/PF 30 ml Vial ONE (07:15)
[2021-03-04] MEDS ORDERED: hydrALAZINE 20 MG/ML VIAL ONE (07:22)
[2021-03-04] MEDS ORDERED: Heparin 1,000 UNITS/ML VIAL ONE ×2 (10:42→10:43)
== END 2021-03-04 12:15 | disposition home or self-care (01) ==
LOC: SDC 05:38
PROVIDERS: ATTEND Surgery
PROC: 031C0ZF Bypass Left Radial Artery to Lower Arm Vein, Open Approach (ICD-10-PCS; principal; 2021-03-04)
DX: I13.2 Hypertensive heart and chronic kidney disease with heart failure and with stage 5 chronic kidney disease, or end stage renal disease (principal); E11.22 Type 2 diabetes mellitus with diabetic chronic kidney disease; N18.6 End stage renal disease; I50.9 Heart failure, unspecified; D63.1 Anemia in chronic kidney disease; J44.9 Chronic obstructive pulmonary disease, unspecified; Z86.73 Personal history of transient ischemic attack (TIA), and cerebral infarction without residual deficits; Z79.02 Long term (current) use of antithrombotics/antiplatelets; Z79.899 Other long term (current) drug therapy; Z88.0 Allergy status to penicillin; Z88.6 Allergy status to analgesic agent; Z99.2 Dependence on renal dialysis
CPT/HCPCS: 80048; 85025; J0360; J1644; J1956; J2405; J2704; J2720; J3010; S0020

== ENCOUNTER 2021-05-04 07:58 | Day surgery (SDC) | payer BC, MEDICAID ==
[2021-05-03 12:15] VITALS: BMI 23.0
[2021-05-04] MEDS ORDERED: Levofloxacin 500 mg/D5W 100 ml Premix Bag ONE (10:08)
[2021-05-04] MEDS ORDERED: Acetaminophen 500 MG TAB ONE (10:08)
[2021-05-04] MEDS ORDERED: Bupivacaine 0.25% HCL 30 ML VIAL ONE (10:34)
[2021-05-04] MEDS ORDERED: Heparin 5,000 UNITS/ML VIAL ONE (10:34)
[2021-05-04] MEDS ORDERED: Protamine Sulfate 50 MG/5 ML VIAL ONE (10:34)
[2021-05-04] MEDS ORDERED: Lidocaine 1% w/Epinephrine 1:100K 20 ML VIAL ONE (10:34)
[2021-05-04 10:35] LABS: #Eosinphils 0.1 thou/uL (0.0-0.7); #Lymphocytes 1.3 thou/uL (1.20-3.40); #Neutrophils 6.4 thou/uL (1.40-6.50); %Basophils 0.3 % (0.0-1.0); %Eosinophils 1.5 % (0.0-10.0); %Monocytes 10.9 % (0.0-10.0); %Neutrophils 72.3 % (42.0-75.0); Hemoglobin 8.8 g/dL (12.0-16.0); Mean Corpuscular HGB CONC 33.8 g/dL (32.0-36.0); Mean Corpuscular Hemoglobin 31.5 pg (27.0-31.0); Mean Corpuscular Volume 93.1 fL (78.0-98.0); Platelet Count 353 thou/uL (130-400); RBC Distribution Width 13.6 % (11.5-14.5); Red Blood Cell (RBC) Count 2.79 mill/uL (4.20-5.40); White Blood Cell (WBC) Count 8.8 thou/uL (4.8-10.8)
[2021-05-04 11:50] LABS: Anion Gap 19 mmol/L (10-20); BUN (Urea Nitrogen) 23 mg/dL (7.0-18.7); Calc. Creatinine Clearance 13 mL/min (70-130); Calcium 8.9 mg/dL (7.8-10.44); Carbon Dioxide 21 mmol/L (22-29); Chloride 102 mmol/L (98-107); Glucose 171 mg/dL (70-105); Potassium 4.2 mmol/L (3.5-5.1); Sodium 138 mmol/L (136-145)
[2021-05-04] MEDS ORDERED: Fentanyl 100 MCG/2 ML VIAL ONE (11:50)
[2021-05-04] MEDS ORDERED: Rocuronium Bromide 10 MG/ML (10ML VIAL) ONE (12:12)
[2021-05-04] MEDS ORDERED: PROPOFOL 200 MG/20 ML VIAL ONE (12:12)
[2021-05-04] MEDS ORDERED: Glycopyrrolate 0.2 MG/ML 5 ML SYRINGE ONE (12:12)
[2021-05-04] MEDS ORDERED: Ondansetron PF 4 MG/2 ML Vial ONE (12:12)
[2021-05-04] MEDS ORDERED: Lidocaine 1% PF 5 ML VIAL ONE (12:12)
[2021-05-04] MEDS ORDERED: ePHEDrine 50 MG/ML VIAL ONE (12:12)
[2021-05-04] MEDS ORDERED: Heparin 1,000 UNITS/ML VIAL ONE (15:39)
== END 2021-05-04 16:00 | disposition home or self-care (01) ==
LOC: SDC 07:58
PROVIDERS: ATTEND Surgery
PROC: 03L80ZZ Occlusion of Left Brachial Artery, Open Approach (ICD-10-PCS; principal; 2021-05-04)
DX: T82.590A Other mechanical complication of surgically created arteriovenous fistula, initial encounter (principal); I12.0 Hypertensive chronic kidney disease with stage 5 chronic kidney disease or end stage renal disease; E11.22 Type 2 diabetes mellitus with diabetic chronic kidney disease; N18.6 End stage renal disease; D63.1 Anemia in chronic kidney disease; E78.00 Pure hypercholesterolemia, unspecified; Z99.2 Dependence on renal dialysis; Z88.0 Allergy status to penicillin; Z88.6 Allergy status to analgesic agent; Z79.02 Long term (current) use of antithrombotics/antiplatelets; Z79.899 Other long term (current) drug therapy; Z98.51 Tubal ligation status; Z86.73 Personal history of transient ischemic attack (TIA), and cerebral infarction without residual deficits; Z87.891 Personal history of nicotine dependence; Y83.2 Surgical operation with anastomosis, bypass or graft as the cause of abnormal reaction of the patient, or of later complication, without mention of misadventure at the time of the procedure
CPT/HCPCS: 80048; 85025; J1644; J1956; J2405; J2704; J2720; J3010; J3490; S0020

== ENCOUNTER 2024-03-05 16:54 | Emergency (ER) | payer BC, OTHER ==
[2024-03-05] MEDS ORDERED: Lidocaine 1% w/Epinephrine 1:100K 20 ML VIAL ONE (17:26)
[2024-03-05 18:24] LABS: #Basophils 0.05 10x3/uL (0.0-0.2); %Basophils 0.7 % (0.0-1.0); %Eosinophils 0.7 % (0.0-10.0); %Lymphocytes 9.1 % (21.0-51.0); %Monocytes 8.9 % (0.0-10.0); %Neutrophils 79.9 % (42.0-75.0); Hemoglobin 9.2 g/dL (12.0-16.0); Mean Corpuscular HGB CONC 29.7 g/dL (32.0-36.0); Mean Corpuscular Hemoglobin 28.3 pg (27.0-31.0); Mean Corpuscular Volume 95.4 fL (78.0-98.0); Mean Platelet Volume 9.8 fL (7.4-10.4); Platelet Count 368 10x3/uL (130-400); RBC Distribution Width 18.4 % (11.5-14.5); Red Blood Cell (RBC) Count 3.25 mill/uL (4.20-5.40)
[2024-03-05] MEDS ORDERED: Protamine Sulfate 50 MG/5 ML VIAL SLOW IVP SCH (18:45)
[2024-03-05 18:50] LABS: ALT (SGPT) 19 U/L (8-55); AST (SGOT) 22 U/L (5-34); Albumin 2.3 g/dL (3.5-5.0); Alkaline Phosphatase 611 U/L (40-110); Anion Gap 11 mmol/L (10-20); BUN (Urea Nitrogen) 22 mg/dL (7.0-18.7); Bilirubin, Total 1.2 mg/dL (0.2-1.2); Calc. Creatinine Clearance 0 mL/min (70-130); Calcium 8.4 mg/dL (7.8-10.44); Carbon Dioxide 29 mmol/L (22-29); Chloride 100 mmol/L (98-107); Estimated GFR 17; Globulin 4.2 g/dL (2.4-3.5); Glucose 132 mg/dL (70-105); Potassium 4.1 mmol/L (3.5-5.1); Protein, Total 6.5 g/dL (6.0-8.3); Sodium 136 mmol/L (136-145)
[2024-03-05 19:14] LABS: INR-International Normal Ratio 1.3; PTT 33.9 sec (22.9-36.1); Prothrombin Time 16.3 sec (12.0-14.7)
[2024-03-05 22:01] LABS: Hematocrit 37.7 % (36.0-47.0); Hemoglobin 11.2 g/dL (12.0-16.0)
== END 2024-03-06 00:25 | disposition short-term general hospital (02) ==
LOC: ERS 16:54 → MERGE 16:54 → ERS 03-06 00:25
DX: I12.0 Hypertensive chronic kidney disease with stage 5 chronic kidney disease or end stage renal disease (principal); N18.6 End stage renal disease; E11.22 Type 2 diabetes mellitus with diabetic chronic kidney disease; D64.9 Anemia, unspecified; Z99.2 Dependence on renal dialysis; Z79.899 Other long term (current) drug therapy
CPT/HCPCS: 12031; 36415; 36416; 80053; 85025; 85610; 85730; 86850; 86900; 86901; 93005; 96374; J2720

== ENCOUNTER 2024-06-20 13:05 | Emergency (ER) | payer OTHER ==
[2024-06-20 15:01] LABS: #Basophils 0.06 10x3/uL (0.0-0.2); %Basophils 1.1 % (0.0-1.0); %Eosinophils 2.2 % (0.0-10.0); %Lymphocytes 13.1 % (21.0-51.0); %Neutrophils 73.2 % (42.0-75.0); Hematocrit 35.5 % (36.0-47.0); Mean Corpuscular Hemoglobin 29.9 pg (27.0-31.0); Mean Corpuscular Volume 96.5 fL (78.0-98.0); Mean Platelet Volume 10.4 fL (7.4-10.4); Platelet Count 190 10x3/uL (130-400); Red Blood Cell (RBC) Count 3.68 mill/uL (4.20-5.40)
[2024-06-20 15:23] LABS: ALT (SGPT) 25 U/L (8-55); AST (SGOT) 21 U/L (5-34); Albumin 2.6 g/dL (3.5-5.0); Alkaline Phosphatase 384 U/L (40-110); Anion Gap 13 mmol/L (10-20); BUN (Urea Nitrogen) 32 mg/dL (9.8-20.1); Bilirubin, Total 1.1 mg/dL (0.2-1.2); Calc. Creatinine Clearance 0 mL/min (70-130); Calcium 8.7 mg/dL (7.8-10.44); Carbon Dioxide 27 mmol/L (22-29); Chloride 101 mmol/L (98-107); Estimated GFR 10; Globulin 4.2 g/dL (2.4-3.5); Glucose 131 mg/dL (70-105); Potassium 4.4 mmol/L (3.5-5.1); Protein, Total 6.8 g/dL (6.0-8.3); Sodium 137 mmol/L (136-145)
== END 2024-06-21 00:46 | disposition home or self-care (01) ==
LOC: ERS 13:05
DX: T82.838A Hemorrhage due to vascular prosthetic devices, implants and grafts, initial encounter (principal); I25.2 Old myocardial infarction; E10.22 Type 1 diabetes mellitus with diabetic chronic kidney disease; N18.6 End stage renal disease; Z99.2 Dependence on renal dialysis
CPT/HCPCS: 12001; 36415; 80053; 85025; 90935; 99283; G0257

== ENCOUNTER 2024-06-26 09:27 | Inpatient (IN) | payer OTHER ==
[~2024-06-26 09:27] MED LIST: Heparin 10,000 UNITS/ 10 ML VIAL ONE
[2024-06-26 11:01] LABS: #Basophils 0.07 10x3/uL (0.0-0.2); %Basophils 1.4 % (0.0-1.0); %Eosinophils 1.8 % (0.0-10.0); %Lymphocytes 12.2 % (21.0-51.0); %Monocytes 8.6 % (0.0-10.0); %Neutrophils 75.8 % (42.0-75.0); Hematocrit 33.9 % (36.0-47.0); Hemoglobin 10.4 g/dL (12.0-16.0); Mean Corpuscular HGB CONC 30.7 g/dL (32.0-36.0); Mean Corpuscular Hemoglobin 29.7 pg (27.0-31.0); Mean Corpuscular Volume 96.9 fL (78.0-98.0); Mean Platelet Volume 10.9 fL (7.4-10.4); Platelet Count 207 10x3/uL (130-400); RBC Distribution Width 17.3 % (11.5-14.5)
[2024-06-26 11:16] LABS: ALT (SGPT) 20 U/L (8-55); AST (SGOT) 22 U/L (5-34); Albumin 2.7 g/dL (3.5-5.0); Alkaline Phosphatase 369 U/L (40-110); Anion Gap 15 mmol/L (10-20); BUN (Urea Nitrogen) 25 mg/dL (9.8-20.1); Bilirubin, Total 1.1 mg/dL (0.2-1.2); Calc. Creatinine Clearance 0 mL/min (70-130); Calcium 8.6 mg/dL (7.8-10.44); Carbon Dioxide 26 mmol/L (22-29); Chloride 100 mmol/L (98-107); Estimated GFR 12; Glucose 117 mg/dL (70-105); Lipase 14 U/L (8-78); Protein, Total 6.7 g/dL (6.0-8.3); Sodium 137 mmol/L (136-145)
[2024-06-26 11:25] LABS: INR-International Normal Ratio 1.3; Prothrombin Time 16.6 sec (12.0-14.7)
[2024-06-26 11:26] LABS: PTT 33.2 sec (22.9-36.1)
[2024-06-26] MEDS ORDERED: Ondansetron PF 4 MG/2 ML Vial ONE (11:39)
[2024-06-26] MEDS ORDERED: Morphine 4 MG/ML VIAL ONE (11:39)
[2024-06-26] MEDS ORDERED: Nitroglycerin 0.4 MG TAB 1 EACH ONE (11:40)
[2024-06-26 11:43] LABS: Troponin I 0.032 ng/mL (< 0.028)
[2024-06-26] MEDS ORDERED: hydrALAZINE 20 MG/ML VIAL ONE (15:14)
[2024-06-26] MEDS ORDERED: Sodium Chloride 0.9% 100 ML ONE (15:14)
[2024-06-26] MEDS ORDERED: Piperacillin/Tazobactam 4.5 GM VIAL ONE (15:14)
[2024-06-26] MEDS ORDERED: Ipratropium/Albuterol 3 ML NEB NEB PRN (15:23)
[2024-06-26] MEDS ORDERED: HYDROcodone/Acetaminophen 5/325 mg Tablet PO PRN (15:23)
[2024-06-26] MEDS ORDERED: Acetaminophen 325 MG TAB PO PRN (15:23)
[2024-06-26] MEDS ORDERED: traZODone HCl 50 MG TAB PO PRN (15:23)
[2024-06-26] MEDS ORDERED: Insulin Lispro 100 UNIT/ML 10 ML VIAL SC PRN (15:35)
[2024-06-26] MEDS ORDERED: Glucagon 1 MG/ML KIT IM PRN (15:35)
[2024-06-26] MEDS ORDERED: Dextrose 50% Abboject 50 ML SYRINGE SLOW IVP PRN (15:35)
[2024-06-26] MEDS ORDERED: Dextrose 5% in Water 1,000 ML IV PRN (15:35)
[2024-06-26] MEDS ORDERED: Iopamidol-370 76% 500 ML MDV (1 ML CHARGE) ONE (15:55)
[2024-06-26 16:09] LABS: Troponin I 0.028 ng/mL (< 0.028)
[2024-06-26] MEDS: Carvedilol 6.25 MG TAB PO SCH (17:24)
[2024-06-26] MEDS: Metoclopramide 10 MG/10 ML UDCUP PO SCH (17:25)
[2024-06-26] MEDS: FLU (Fluarix Triv) TS24-25(6MOS UP)/PF 45 MCG/0.5 ML Syringe IM ONE (17:47)
[2024-06-26] MEDS: EPOETIN ALFA-EPBX (ESRD) 10,000 UNITS/ML VIAL SC SCH (18:44)
[2024-06-26] MEDS: Apixaban 5 MG TAB PO SCH (22:58)
[2024-06-26] MEDS: Atorvastatin Calcium 20 MG TAB PO SCH (22:58)
[2024-06-26] MEDS: hydrALAZINE 25 MG TAB PO SCH (22:59)
[2024-06-26] MEDS: Nitroglycerin 2% Ointment 1 INCH/1 GM Packet TOP SCH (23:01)
[2024-06-26] MEDS: rOPINIRole HCl 1 MG TAB PO SCH (23:03)
[2024-06-26] MEDS: Lacosamide 50 mg Tablet PO SCH (23:03)
[2024-06-26 23:58] LABS: Hep B Core Total Index 0.18 S/CO (0-0.79)
[2024-06-26 23:59] LABS: HBsAg Index 0.28 S/CO (0-0.99); Hep B Core Total Ab NONREACTIVE (NonReactive); Hep B Surf AB REACTIVE (NonReactive); Hep B Surf Ag NONREACTIVE S/CO (NonReactive); Hep C IgG Ab NONREACTIVE S/CO (NonReactive); Hep C Index 0.09 S/CO (0-0.79)
[2024-06-27 00:28] LABS: HBSAB Concentration 2369.48 mIU/mL
[2024-06-27 05:52] VITALS: BMI 23.1
[2024-06-27] MEDS: Citalopram 10 MG TAB PO SCH (08:33)
[2024-06-27] MEDS: Lisinopril 20 MG TAB PO SCH (08:33)
[2024-06-27] MEDS: Clopidogrel Bisulfate 75 MG TAB PO SCH (08:33)
[2024-06-27] MEDS: Pantoprazole DR 40 MG TAB PO SCH (08:34)
[2024-06-27] MEDS: Furosemide 20 MG TAB PO SCH (08:34)
[2024-06-27 12:07] VITALS: BMI 23.1
[2024-06-27] MEDS: NIFEdipine XL 30 MG ER.TAB PO SCH ×2 (17:12→21:52)
[2024-06-27] MEDS: hydrALAZINE 25 MG TAB PO SCH (21:50)
[2024-06-28] MEDS ORDERED: Heparin 10,000 UNITS/ 10 ML VIAL ONE (08:51)
[2024-06-28] MEDS: Lidocaine-Prilocaine 2.5% Cream 5 GM TUBE TOP SCH (08:58)
[2024-06-28] MEDS ORDERED: NIFEdipine XL 30 MG ER.TAB PO SCH (09:00)
[2024-06-28 15:41] VITALS: BP 147/67; TEMP 98
== END 2024-06-28 17:00 | DRG 640 ==
LOC: ERS 09:27 → 2NO 15:16 → OBSVTOIN 06-27 10:57
PROVIDERS: ADMIT Family Medicine; ATTEND Internal Medicine
PROC: 5A1D70Z Performance of Urinary Filtration, Intermittent, Less than 6 Hours Per Day (ICD-10-PCS; principal; 2024-06-27)
DX: E87.70 Fluid overload, unspecified (principal); N18.6 End stage renal disease; I13.2 Hypertensive heart and chronic kidney disease with heart failure and with stage 5 chronic kidney disease, or end stage renal disease; I69.354 Hemiplegia and hemiparesis following cerebral infarction affecting left non-dominant side; R07.89 Other chest pain; J44.9 Chronic obstructive pulmonary disease, unspecified; K21.9 Gastro-esophageal reflux disease without esophagitis; G40.909 Epilepsy, unspecified, not intractable, without status epilepticus; G25.81 Restless legs syndrome; G47.00 Insomnia, unspecified; D64.9 Anemia, unspecified; E78.5 Hyperlipidemia, unspecified; I50.9 Heart failure, unspecified; Z88.0 Allergy status to penicillin; Z88.8 Allergy status to other drugs, medicaments and biological substances; Z88.5 Allergy status to narcotic agent; Z99.2 Dependence on renal dialysis; Z79.899 Other long term (current) drug therapy; Z79.02 Long term (current) use of antithrombotics/antiplatelets; Z79.01 Long term (current) use of anticoagulants; Z98.891 History of uterine scar from previous surgery
CPT/HCPCS: 36415; 36416; 70551; 71045; 71275; 74177; 80053; 83690; 83735; 83880; 84484; 85025; 85610; 85730; 86704; 86706; 86803; 87040; 87340; 93005; 93306; 96374; 96375; J0360; J1644; J2272; J2405; J2543; Q5105; Q9967

== ENCOUNTER 2024-07-04 18:57 | Emergency (ER) | payer OTHER ==
[2024-07-04] MEDS ORDERED: hydrALAZINE 25 MG TAB ONE (21:34)
== END 2024-07-04 20:40 ==
LOC: ERS 18:57
DX: T82.530A Leakage of surgically created arteriovenous fistula, initial encounter (principal); I12.0 Hypertensive chronic kidney disease with stage 5 chronic kidney disease or end stage renal disease; E10.22 Type 1 diabetes mellitus with diabetic chronic kidney disease; N18.6 End stage renal disease; Z86.73 Personal history of transient ischemic attack (TIA), and cerebral infarction without residual deficits; Z99.2 Dependence on renal dialysis; Z79.01 Long term (current) use of anticoagulants
CPT/HCPCS: 99283

== ENCOUNTER 2024-08-21 04:56 | Emergency (ER) | payer OTHER ==
[2024-08-21] MEDS ORDERED: Tranexamic Acid 1,000 MG/10 ML VIAL ONE (05:03)
[2024-08-21] MEDS ORDERED: hydrALAZINE 25 MG TAB ONE (05:28)
[2024-08-21 05:50] LABS: %Basophils 1.6 % (0.0-1.0); %Eosinophils 3.9 % (0.0-10.0); %Lymphocytes 13.7 % (21.0-51.0); %Monocytes 12.1 % (0.0-10.0); %Neutrophils 68.4 % (42.0-75.0); Hematocrit 40.8 % (36.0-47.0); Hemoglobin 13.4 g/dL (12.0-16.0); Mean Corpuscular HGB CONC 32.8 g/dL (32.0-36.0); Mean Corpuscular Hemoglobin 31.2 pg (27.0-31.0); Mean Corpuscular Volume 94.9 fL (78.0-98.0); Mean Platelet Volume 10.3 fL (7.4-10.4); Platelet Count 211 10x3/uL (130-400); RBC Distribution Width 13.7 % (11.5-14.5)
[2024-08-21 06:04] LABS: INR-International Normal Ratio 1.2; Prothrombin Time 14.7 sec (12.0-14.7)
[2024-08-21 06:05] LABS: PTT 28.9 sec (22.9-36.1)
[2024-08-21 06:08] LABS: ALT (SGPT) 68 U/L (8-55); AST (SGOT) 50 U/L (5-34); Albumin 3.1 g/dL (3.5-5.0); Alkaline Phosphatase 456 U/L (40-110); Anion Gap 17 mmol/L (10-20); BUN (Urea Nitrogen) 38 mg/dL (9.8-20.1); Bilirubin, Total 0.8 mg/dL (0.2-1.2); Calc. Creatinine Clearance 0 mL/min (70-130); Calcium 9.5 mg/dL (7.8-10.44); Carbon Dioxide 25 mmol/L (22-29); Chloride 103 mmol/L (98-107); Estimated GFR 12; Globulin 4.8 g/dL (2.4-3.5); Glucose 98 mg/dL (70-105); Potassium 4.6 mmol/L (3.5-5.1); Protein, Total 7.9 g/dL (6.0-8.3); Sodium 140 mmol/L (136-145)
== END 2024-08-21 10:05 | disposition home or self-care (01) ==
LOC: ERS 04:56
DX: T82.838A Hemorrhage due to vascular prosthetic devices, implants and grafts, initial encounter (principal); I13.0 Hypertensive heart and chronic kidney disease with heart failure and stage 1 through stage 4 chronic kidney disease, or unspecified chronic kidney disease; E11.22 Type 2 diabetes mellitus with diabetic chronic kidney disease; N18.9 Chronic kidney disease, unspecified; I50.9 Heart failure, unspecified; I25.2 Old myocardial infarction; J44.9 Chronic obstructive pulmonary disease, unspecified; K21.9 Gastro-esophageal reflux disease without esophagitis; I73.9 Peripheral vascular disease, unspecified; D64.9 Anemia, unspecified; E11.36 Type 2 diabetes mellitus with diabetic cataract; Z79.01 Long term (current) use of anticoagulants; Z99.2 Dependence on renal dialysis; Z79.02 Long term (current) use of antithrombotics/antiplatelets; Z79.899 Other long term (current) drug therapy; Z79.51 Long term (current) use of inhaled steroids
CPT/HCPCS: 12001; 36415; 80053; 83735; 85025; 85610; 85730; 93005; 93923

== ENCOUNTER 2024-09-04 11:57 | Inpatient (IN) | payer OTHER ==
[2024-09-04] MEDS ORDERED: Atropine Sulfate 1 mg/1 ml Vial ONE (12:23)
[2024-09-04] MEDS ORDERED: Calcium Chloride 1 GM/10 ML Abboject SYRINGE ONE (12:23)
[2024-09-04] MEDS ORDERED: Amiodarone 150 MG/3 ML VIAL ONE (12:23)
[2024-09-04] MEDS ORDERED: Sodium Bicarb 50 MEQ/50 ML Abboject 8.4% SYRINGE ONE (12:23)
[2024-09-04] MEDS ORDERED: EPINEPHrine 1 MG/10 ML Abboject SYRINGE ONE (12:23)
[2024-09-04 12:34] LABS: Analyzer IN Cardio ER; Base Excess (BEa) -13.4 mEq/L (-2.0 to +3.0); Carboxyhemoglobin (COHb) 1.2 gm% (0.0-3.0); Hematocrit-ABG 31 % (36.0-47.0); Hemoglobin (Hb) 10.7 g/dL (12.0-16.0); O2 Tension (PaO2), arterial 151.3 mmHg (80.0-100.0); Potassium - ABG Lab 3.91 mmol/L (3.70-5.30)
[2024-09-04 12:36] LABS: Puncture Site Right Radial artery; pH, Arterial 7.185 (7.35-7.45)
[2024-09-04 12:59] LABS: Bacteria/HPF 4+ HPF (None Seen); Bilirubin Negative (Negative); Blood, Urine 2+ (Negative); CAUTI Indications for Culture Urological Procedure; Clarity Extra Turbid (Clear); Glucose, Urine (Dipstick) 100 mg/dL (Negative); Ketone, Urine Negative (Negative); Leukocyte 500 Leu/uL (Negative); Nitrite Negative (Negative); Protein, Urine (Dipstick) 200 mg/dL (Neg-Trace); RBC/HPF 21-50 HPF (0-3); Specific Gravity, Urine 1.016 (1.002-1.036); Squamous Epithelial None Seen HPF (0-3); Urobilinogen Normal mg/dL (Less than 2); WBC/HPF 21-50 HPF (0-3)
[2024-09-04 13:05] LABS: Troponin I 0.349 ng/mL (< 0.028)
[2024-09-04 13:09] LABS: INR-International Normal Ratio 2.7; Prothrombin Time 29.2 sec (12.0-14.7)
[2024-09-04 13:11] LABS: PTT 48.2 sec (22.9-36.1)
[2024-09-04 13:14] LABS: Hematocrit 30.1 % (36.0-47.0); Hemoglobin 9.3 g/dL (12.0-16.0); Mean Corpuscular HGB CONC 30.9 g/dL (32.0-36.0); Mean Corpuscular Volume 100.3 fL (78.0-98.0); Mean Platelet Volume 11.8 fL (7.4-10.4); Platelet Count 211 10x3/uL (130-400); RBC Distribution Width 14.4 % (11.5-14.5)
[2024-09-04 13:22] LABS: ALT (SGPT) 194 U/L (Less than 34); AST (SGOT) 331 U/L (11-34); Alkaline Phosphatase 254 U/L (40-110); Anion Gap 26 mmol/L (10-20); BUN (Urea Nitrogen) 71 mg/dL (9.8-20.1); Calc. Creatinine Clearance 0 mL/min (70-130); Calcium 9.2 mg/dL (7.8-10.44); Carbon Dioxide 12 mmol/L (22-29); Chloride 100 mmol/L (98-107); Estimated GFR 7; Globulin 3.4 g/dL (2.4-3.5); Glucose 310 mg/dL (70-105); Lipase 28 U/L (8-78); Magnesium 1.8 mg/dL (1.6-2.6); Potassium 3.7 mmol/L (3.5-5.1); Protein, Total 5.4 g/dL (6.0-8.3); Sodium 134 mmol/L (136-145)
[2024-09-04 13:29] LABS: Urine Culture Reflex Yes Yes
[2024-09-04 13:34] LABS: CK (CPK) 133 U/L (29-168)
[2024-09-04 13:52] LABS: #Basophils 0.04 10x3/uL (0.0-0.2); %Basophils 0.3 % (0.0-1.0); %Eosinophils 0.3 % (0.0-10.0); %Lymphocytes 29.7 % (21.0-51.0); %Neutrophils 65.9 % (42.0-75.0)
[2024-09-04] MEDS ORDERED: Fentanyl CADD 100 ML IV SCH (14:30)
[2024-09-04] MEDS ORDERED: Senokot S 8.6-50 MG TAB PO PRN (15:03)
[2024-09-04] MEDS ORDERED: Acetaminophen 650 MG Suppository PR PRN (15:03)
[2024-09-04 15:50] LABS: Lactic Acid 9.67 mmol/L (0.50-2.20)
[2024-09-04 16:14] LABS: Troponin I 0.805 ng/mL (< 0.028)
[2024-09-04 16:57] VITALS: TEMP 97.6
[2024-09-04] MEDS: NOREPINEPHRINE 8 MG/250 ML-D5W 250 ML IVPB SCH (17:34)
[2024-09-04 17:58] LABS: HBSAB Concentration 507.05 mIU/mL; Hep B Surf AB REACTIVE (NonReactive)
[2024-09-04] MEDS ORDERED: Sodium Bicarbonate 150 MEQ in Dextrose 5% in Water 1,000 ML IV SCH (18:00)
[2024-09-04 18:30] VITALS: BMI 20.2
[2024-09-04 19:15] LABS: Hep B Core Total Ab NONREACTIVE (NonReactive); Hep B Core Total Index 0.21 S/CO (0-0.79); Hep B Surf Ag NONREACTIVE S/CO (NonReactive); Hep C IgG Ab NONREACTIVE S/CO (NonReactive); Hep C Index 0.06 S/CO (0-0.79)
[2024-09-04] MEDS ORDERED: FLU (Fluarix Triv) TS24-25(6MOS UP)/PF 45 MCG/0.5 ML Syringe IM ONE (21:00)
== END 2024-09-04 18:41 | disposition expired | DRG 871 ==
LOC: ERS 11:57 → CCU 12:08
PROVIDERS: ADMIT Student in an Organized Health Care Education/Training Program; ATTEND Student in an Organized Health Care Education/Training Program
PROC: 0T9B70Z Drainage of Bladder with Drainage Device, Via Natural or Artificial Opening (ICD-10-PCS; principal; 2024-09-04)
PROC: 5A12012 Performance of Cardiac Output, Single, Manual (ICD-10-PCS; 2024-09-04)
PROC: 4A033R1 Measurement of Arterial Saturation, Peripheral, Percutaneous Approach (ICD-10-PCS; 2024-09-04)
PROC: 3E033XZ Introduction of Vasopressor into Peripheral Vein, Percutaneous Approach (ICD-10-PCS; 2024-09-04)
PROC: 5A1935Z Respiratory Ventilation, Less than 24 Consecutive Hours (ICD-10-PCS; 2024-09-04)
DX: A41.50 Gram-negative sepsis, unspecified (principal); G93.41 Metabolic encephalopathy; J96.21 Acute and chronic respiratory failure with hypoxia; R65.21 Severe sepsis with septic shock; N18.6 End stage renal disease; J18.9 Pneumonia, unspecified organism; K72.00 Acute and subacute hepatic failure without coma; E87.20 Acidosis, unspecified; I12.0 Hypertensive chronic kidney disease with stage 5 chronic kidney disease or end stage renal disease; N39.0 Urinary tract infection, site not specified; E87.1 Hypo-osmolality and hyponatremia; I69.854 Hemiplegia and hemiparesis following other cerebrovascular disease affecting left non-dominant side; I46.9 Cardiac arrest, cause unspecified; Z66 Do not resuscitate; Z79.899 Other long term (current) drug therapy; R57.0 Cardiogenic shock; Z99.2 Dependence on renal dialysis; E78.5 Hyperlipidemia, unspecified; Z88.0 Allergy status to penicillin; Z88.8 Allergy status to other drugs, medicaments and biological substances; J44.9 Chronic obstructive pulmonary disease, unspecified; Z98.890 Other specified postprocedural states
CPT/HCPCS: 36415; 36600; 70450; 71045; 71250; 72125; 74177; 80053; 81001; 82550; 82805; 83605; 83690; 83735; 83880; 84443; 84484; 85025; 85610; 85730; 86704; 86706; 86803; 87040; 87077; 87086; 87186; 87340; 93005; 94002; J0171; J0282; J0461; J3010